=== PATIENT | male | born 1945 | race African-American/Black ===

== ENCOUNTER 2018-05-31 20:23 | Inpatient (IN) ==
--- NOTE | 2018-05-31 21:03 | Diag Imaging Result Doc PS360 ---
CT HEAD W/O CONTRAST - 05/31/2018 INDICATION: stroke protocol COMPARISON: 06/05/2017 FINDINGS: Stable advanced periventricular white matter chronic microvascular disease. There are numerous stable old lacunae, most prominently in the debbie, basal ganglia and caudate heads. No intracranial mass or hemorrhage. The skull is intact. The sinuses, mastoids, and middle ears are clear. IMPRESSION: Rather advanced chronic ischemic changes. No acute process. This exam was performed using automated exposure control, adjustment of mA or kV according to patient size, and/or use of iterative reconstruction technique Electronically signed by Mike Reeder 05/31/2018 9:01 PM
[2018-05-31 21:11] LABS: INR 1.08; PROTIME 14.9 Seconds (11.0-16.0)
[2018-05-31 21:12] LABS: PTT 32.5 Seconds (22.3-41.8)
[2018-05-31 21:14] LABS: BASO# 0.09 X1000 (0.0-0.2); HEMOGLOBIN 9.1 g/dL (14.0-18.0); MCH 29.7 PG (27-31); MPV 10.8 FL (7.4-10.4); PLT 197 X1000 (130-400); RBC 3.06 XMIL (4.7-6.1); RDW 20.4 % (11.5-14.5); WBC 8.66 X1000 (4.8-10.8)
--- NOTE | 2018-05-31 21:19 | Diag Imaging Result Doc PS360 ---
CHEST-PORTABLE - 05/31/2018 INDICATION: stroke protocol COMPARISON: 04/12/2018 FINDINGS: Stable mild cardiomegaly. There is some faint linear scarring or fibrosis in the costophrenic angles bilaterally. No new or focal infiltrates. No pneumothorax or pleural effusion. IMPRESSION: Cardiomegaly. No change from prior. Electronically signed by Mike Reeder 05/31/2018 9:16 PM
[2018-05-31 21:21] LABS: ALB/GLOB RATIO 1.2; ALBUMIN 3.9 g/dL (3.5-5.0); CALCIUM 8.5 mg/dL (8.8-10.2); CREATININE 1.8 mg/dL (0.7-1.2); POTASSIUM 4.4 mmol/L (3.5-5.1); TOTAL BILIRUBIN 1.86 mg/dL (0.20-1.00); TOTAL PROTEIN 7.1 g/dL (6.3-8.3)
[2018-05-31 21:40] LABS: EOS 2 % (1-10); LYMPHS 46 % (21-51); MONO 3 % (1-9); NRBC 31 % (0-0); SEGS 49 % (42-75)
[2018-05-31 21:41] LABS: ANISOCYTOSIS 3+; HOWELL-JOLLY BODIES OCCASIONAL; LARGE PLATELETS OCCASIONAL; POIKILOCYTOSIS 2+; TARGET CELLS 2+
[2018-05-31 21:44] LABS: SICKLE CELLS OCCASIONAL
--- NOTE | 2018-06-01 00:31 | PROVIDER DOCUMENTATION ---
This chart was entered by Taya Vivar Scribe, acting as scribe for Rajendra Freeman MD. HPI-Neurological Disorder - General Chief Complaint: Stroke-Like Symptoms Stated Complaint: possible cva Time Seen by Provider: 05/31/18 20:28 Source: family, EMS Allergies/Adverse Reactions: Patient Allergies Allergy/AdvReac Type Severity Reaction Status Date / Time ramipril [From Altace] Allergy Unknown COUGH Verified 04/12/18 16:13 Home Medications: Home Medication List Medication Instructions Recorded Confirmed Last Taken Type Clopidogrel Bisulfate [Plavix] 75 mg PO DAILY 12/06/17 05/31/18 03/18/18 07:30 History Cyanocobalamin (Vitamin B-12) 1,000 mcg PO DAILY 12/06/17 05/31/18 03/18/18 07: 30 History [B-12] Folic Acid 1 mg pe PO DAILY 12/06/17 05/31/18 03/18/18 07:30 History Glimepiride 1 mg PO BID 12/06/17 05/31/18 03/18/18 07:30 History Hydrocodone/Acetaminophen [Trinity 10 mg PO Q6-8H PRN PRN 12/06/17 05/31/18 07:30 History 7.5-325 Tablet] Losartan [Cozaar] 50 mg PO DAILY 12/06/17 05/31/18 03/18/18 07:30 History Multivitamin [Daily Multiple 1 each PO DAILY 12/06/17 05/31/18 03/18/18 07:30 History Vitamin] Omeprazole [Prilosec] 40 mg PO QAM 12/06/17 05/31/18 03/18/18 07:30 History ATORVAstatin [Lipitor] 40 mg PO DAILY 05/31/18 05/31/18 Unknown History Aspirin 81 mg PO DAILY 05/31/18 05/31/18 Unknown History Docusate Sodium 100 mg PO DAILY 05/31/18 05/31/18 Unknown History - History of Present Illness-Neuro Nature of Presenting Problem: 72 yom presents to ED by EMS c/o left side facial dropping, weakness upon getting out of shower that lasted 1 hr and was resolved by the time got to ED. Pt has slurred speech normally but family said it was increased tonight. Pt is a heavy smoker. Pt has hx of HTN, CVA, DM, GERD, Sickle Cell Disease. Hx of 2 CVA in the last 15 month end with mild slurred speech and left side weakness. Review of Systems - Adult - REVIEW OF SYSTEMS - ADULT Constitutional: reports: see HPI, arabella. denies: chills, fever Eyes: reports: no symptoms reported Ears, Nose, Mouth & Throat: reports: no symptoms reported Cardiovascular: reports: no symptoms reported Respiratory: reports: no symptoms reported Gastrointestinal: reports: no symptoms reported Genitourinary: reports: no symptoms reported Musculoskeletal: reports: muscle weakness (left side) Integumentary: reports: no symptoms reported Neurological: reports: see HPI, other (left side) Psychiatric: reports: no symptoms reported Endocrine: reports: no symptoms reported Hematologic/Lymphatic: reports: no symptoms reported Allergic/Immunologic: reports: no symptoms reported All Other Systems: Reviewed and Negative Past History - Adult - PAST MEDICAL HISTORY-ADULT Review of Records: reports: Old Records Reviewed, Nursing Assessment Review, Medications Reviewed Major Childhood Illnesses: reports: denies history Cardiovascular: reports: HTN Respiratory: reports: denies history Gastrointestinal: reports: GERD, GI bleed Obstetrical/Gynecological: reports: denies history Genitourinary: reports: denies history Musculoskeletal: reports: denies history Neurological: reports: CVA Endocrine/Immune: reports: Diabetes, Sickle Cell disease Other Conditions: reports: denies history - PRIOR SURGERIES/PROCEDURES Surgical/Procedure History: reports: cholecystectomy - PRIOR HOSPITALIZATIONS Prior Hospitalizations: reports: for other non-related - IMMUNIZATION STATUS Childhood Immunizations: See Nurse Assessment Flu Vaccine: See Nurse Assessment - FAMILY HISTORY Family History: reviewed, not pertinent - SOCIAL HISTORY Smoking: cigarettes, greater than 1 pack/day Physical Exam- Neurological - Physical Exam-Neuro Initial Vital Signs Reviewed: Yes General Appearance: appears well, alert, no apparent distress Eye Exam: bilateral eye: normal inspection, PERRL HENMT: normocephalic/atraumatic, moist mucous membranes, normal ENT inspection Head Injury: no evidence of injury. negative: active bleeding, Pena's Sign Neck: non-tender, full range of motion Respiratory: chest non-tender, lungs clear, normal breath sounds. negative: crackles, rales, rhonchi Cardiovascular: normal peripheral pulses, regular rate, rhythm. negative: bradycardia, tachycardia Abdominal Exam: normal bowel sounds, non tender, soft. negative: distended, guarding, rigid, rebound, tenderness Lymphatic: no adenopathy. negative: axilla node tender Extremity: normal range of motion, non-tender wreath and garland maker Exam: normal hearing, normal speech, PERRL Coordination/Gait: other (finger to nose test ataxia on the left side Nl on the right side). negative: normal finger to nose Motor/Sensory: no motor deficit, no sensory deficit, no pronator drift Neurologic: wreath and garland maker II-XII nml as tested, grossly normal Integumentary: normal color, normal turgor, warm/dry Psych/Mental Status: normal mood/affect, normal thought content, normal thought process, oriented x 3 Progress - PLAN OF CARE/RESULTS Progress/Plan/Lab Results: Vital Signs - 8 hr 05/31/18 21:08 05/31/18 21:09 05/31/18 22:01 Temperature 97.2 F L Pulse Rate 55 L 64 Respiratory Rate 16 16 Blood Pressure 191/84 O2 Sat by Pulse Oximetry 96 97 05/31/18 22:31 05/31/18 23:01 Temperature Pulse Rate 62 86 Respiratory Rate 21 12 Blood Pressure 165/86 183/94 O2 Sat by Pulse Oximetry 96 95 Laboratory Results - last 24 hr 05/31/18 05/31/18 05/31/18 20:51 20:51 20:51 WBC 8.66 RBC 3.06 L Hgb 9.1 L Hct 26.0 L MCV 85.0 MCH 29.7 MCHC 35.0 RDW Std Deviation 20.4 H Plt Count 197 MPV 10.8 H Neut % (Auto) Not Reportable Lymph % (Auto) Not Reportable Brown % (Auto) Not Reportable Eos % (Auto) Not Reportable Baso % (Auto) 1.0 H Neut # (Auto) Not Reportable Lymph # (Auto) Not Reportable Brown # (Auto) Not Reportable Eos # (Auto) Not Reportable Baso # (Auto) 0.09 Corrected WBC (Man) 6.60 Segmented Neutrophils 49 Lymphocytes 46 Monocytes 3 Eosinophils 2 Nucleated RBCs 31 H Large Platelets OCCASIONAL Poikilocytosis 2+ Anisocytosis 3+ Sickle Cells OCCASIONAL Target Cells 2+ [place] Bodies OCCASIONAL PT 14.9 INR 1.08 PTT (Actin FS) 32.5 Sodium 144 Potassium 4.4 Chloride 108 H Carbon Dioxide 25 Anion Gap 11 BUN 18 Creatinine 1.8 H Estimated GFR/1.73 m2 45 BUN/Creatinine Ratio 10 Glucose 146 H POC Glucose Calculated Osmolality 291 Calcium 8.5 L Total Bilirubin 1.86 H AST 61 H ALT 28 Alkaline Phosphatase 128 H Troponin T Total Protein 7.1 Albumin 3.9 Globulin 3.2 Albumin/Globulin Ratio 1.2 05/31/18 05/31/18 20:51 20:59 WBC RBC Hgb Hct MCV MCH MCHC RDW Std Deviation Plt Count MPV Neut % (Auto) Lymph % (Auto) Brown % (Auto) Eos % (Auto) Baso % (Auto) Neut # (Auto) Lymph # (Auto) Brown # (Auto) Eos # (Auto) Baso # (Auto) Corrected WBC (Man) Segmented Neutrophils Lymphocytes Monocytes Eosinophils Nucleated RBCs Large Platelets Poikilocytosis Anisocytosis Sickle Cells Target Cells [place] Bodies PT INR PTT (Actin FS) Sodium Potassium Chloride Carbon Dioxide Anion Gap BUN Creatinine Estimated GFR/1.73 m2 BUN/Creatinine Ratio Glucose POC Glucose 127 H Calculated Osmolality Calcium Total Bilirubin AST ALT Alkaline Phosphatase Troponin T 0.067 Total Protein Albumin Globulin Albumin/Globulin Ratio Orders Category Date Time Status Admit - [facility] Routine AdmDCTranf 05/31/18 23:50 Active Cardiac Monitoring DIRECTED Care 05/31/18 20:28 Completed Finger Stick Blood Sugar (ED) DIRECTED Care 05/31/18 20:28 Completed Misc. NRSG Communication Order DIRECTED Care 05/31/18 20:28 Inactive Neurological Check Q4H Care 05/31/18 23:50 Active Oxygen Therapy- ED Nursing DIRECTED Care 05/31/18 20:28 Completed Saline Loc NOW Care 05/31/18 20:28 Completed Vital Signs Order Q 4-HR ASSESS Care 05/31/18 23:50 Active Z-Document. for Tele Applied ORDERED Care 05/31/18 23:50 Active Diabetic Diet Diet 05/31/18 23:50 Active CHEST-PORTABLE [RAD] Stat Exams 05/31/18 20:[address] HEAD W/O CONTRAST [CT] Stat Exams 05/31/18 20:25 Completed CBC WITH ELECTRONIC DIFF [HEME] Stat Lab 05/31/18 20:51 Completed COMPREHENSIVE METABOLIC PANEL [CHEM] Stat Lab 05/31/18 20:51 Completed PROTIME WITH INR [COAG] Stat Lab 05/31/18 20:51 Completed PTT [COAG] Stat Lab 05/31/18 20:51 Completed TROPONIN T Stat Lab 05/31/18 20:51 Completed URINALYSIS W/POSS RFLX CULT [URINALYSIS] Stat Lab 05/31/18 20:28 Uncollected Ondansetron [Zofran] Med 05/31/18 23:50 Active 4 mg IV Q4H PRN PRN Oxygen Device Routine Oth 05/31/18 23:50 Active Telemetry [OM.EQ] Routine Oth 05/31/18 23:50 Active EKG [EKG] Stat Ther 05/31/18 20:25 Ordered EKG [EKG] Stat Ther 05/31/18 20:28 Ordered Transfer/Admit Order [TRANSFER] Routine Transfer 05/31/18 23:39 Completed Patient care, assessment and plan discussed with attending physician Dr. Martin and he agree with the plan as documented. Result Diagrams: 05/31/18 20:51 05/31/18 20:51 - REASSESSMENT Reassessment #1 Time Reassessed: 21:18 Status: other (Called transfer center, they said they are on diversion and they refuse phone consult also.) Reassessment #2 Time Reassessed: 22:05 Status: other (Spoke to Dr. Berg from [facility]. Advised to admit him to our facility for TIA workup. no TPA needed.) - EKG 1 Time of EKG reading by physician:: 01:07 EKG Read and Signed by:: Rajendra Sheppard EKG Interpretation (*Must complete 3 of following elements*): Normal Rate: 87 Rhythm: sinus [place]: normal IA Interval: normal - CONSULTS/PCP/HOSPITALIST Notification Time Discussed: 21:55 Consult Disposition: Admit (Accepted. workup for TIA.) Departure - Departure Date of Disposition Decision: 05/31/18 Time of Disposition Decision: 21:55 DIAGNOSIS: TIA (transient ischemic attack) Disposition: ADMITTED INPATIENT 09 Certified Medical Emergency: Emergent Condition: Stable - Critical Care Note This patient required my direct & personal management of CC.: No Attestation - Physician/ OPAL Attestation Patient care was provided by Advanced Practice Provider:: No Advanced Practice Provider:: Rajendra Sheppard The physician spent face to face time with patient:: Yes Advanced Practice Provider documentation review:: Supervising physician onsite and consulted in the evaluation and care of this patient. The physician did have a face to face encounter with the patient. - NIH Stroke Scale NIH Type: Initial Evaluation Level of Consciousness: 0-Alert LOC Questions (ask month and age): 0-Answers Both Correctly LOC Commands (ask to open & close eyes;make a fist, let go): 0-Obeys Both Correctly Best Gaze (horizontal eye movement): 0-Normal Visual (use finger movement, counting or visual threat): 0-No Visual Loss Facial Palsy (show teeth or raise eyebrows & close eyes tght: 0-Symmetrical Movement Motor Function-left arm: 0-Normal Motor Function-right arm: 0-Normal Motor Function-left le-Normal Motor Function-right le-Normal Limb Ataxia(qksrbs-sxbt-vqhwen, or heel to huffman): 2-Present in two limbs (B/L LE LUE) Sensory(pin prick to face,arms,trunk,legs-compare side/side): 0-No Ataxia Best Language(name item/read sentence.Ex-Down to Earth): 0-No Aphasia Dysarthria(Pt read words or say words Ex.Mama,Tip-Top,Thanks: 0-Normal Articulation Extinction and Inattention: 0-Normal Modified Sonam Score Criteria: 0-no symptoms This chart was documented by the indicated scribe, (Taya Vivar Scribe) and accurately reflects the services I performed and decisions made by me, Rajendra Freeman MD, as attested by the provider's signature.
[2018-06-01] MEDS ORDERED: ASPIRIN PO ONE (00:33)
[2018-06-01] MEDS ORDERED: TYLENOL PO PRN (00:42)
[2018-06-01 01:29] LABS: URINE SOURCE CLEAN CATCH
[2018-06-01 01:32] LABS: BILIRUBIN URINE NEGATIVE (NEGATIVE); BLOOD URINE MODERATE (NEGATIVE); COLOR YELLOW; GLUCOSE URINE NEGATIVE (NEGATIVE); KETONE URINE NEGATIVE (NEGATIVE); LEUKOCYTES URINE NEGATIVE (NEGATIVE); NITRITE URINE NEGATIVE (NEGATIVE); PH URINE 6.5; PROTEIN URINE 200 mg/dL (NEGATIVE); SP GRAVITY URINE 1.005; TURBIDITY URINE CLEAR (CLEAR); UR EPITHELIAL CELLS <10 /HPF (<10); URINE BACTERIA NEGATIVE /HPF; URINE WBC <10 /HPF (<10); UROBILINOGEN URINE NORMAL (NORMAL)
[2018-06-01] MEDS ORDERED: NS 1,000 ML IV SCH (04:30)
[2018-06-01] MEDS: LOVENOX SUBQ SCH (05:16)
[2018-06-01 05:25] LABS: BASO# 0.05 X1000 (0.0-0.2); BASO% 0.4 % (0.0-0.8); HEMATOCRIT 25.6 % (42.0-52.0); HEMOGLOBIN 8.8 g/dL (14.0-18.0); MCH 29.4 PG (27-31); MCHC 34.4 g/dL (33-37); MCV 85.6 FL (81-99); MPV 10.6 FL (7.4-10.4); PLT 192 X1000 (130-400); RBC 2.99 XMIL (4.7-6.1); RDW 20.2 % (11.5-14.5); WBC 11.64 X1000 (4.8-10.8)
[2018-06-01 05:49] LABS: ALB/GLOB RATIO 1.3; ALBUMIN 3.7 g/dL (3.5-5.0); CALCIUM 8.2 mg/dL (8.8-10.2); CREATININE 1.4 mg/dL (0.7-1.2); POTASSIUM 4.3 mmol/L (3.5-5.1); TOTAL BILIRUBIN 1.34 mg/dL (0.20-1.00); TOTAL PROTEIN 6.6 g/dL (6.3-8.3)
[2018-06-01 05:55] LABS: BANDS 6 % (0-1); EOS 2 % (1-10); LYMPHS 30 % (21-51); MONO 4 % (1-9); NRBC 12 % (0-0); SEGS 58 % (42-75)
[2018-06-01] MEDS: PROTONIX PO SCH (06:29)
[2018-06-01] MEDS: HUMALOG SUBQ SCH ×4 (06:29→20:35)
--- NOTE | 2018-06-01 07:04 | HISTORY AND PHYSICAL ---
PRIMARY CARE PROVIDER: Chas Salgado DO NEUROLOGIST: Dr. Diaz in [place]. LIFEGUARD: Bay Arango MD DATE AND TIME: at 2245. CHIEF COMPLAINT: Stroke-like symptoms. HISTORY OF PRESENT ILLNESS: Mr. Thomas is a 72-year-old male with a history of sickle cell disease, 3 previous strokes, hypertension, and diabetes mellitus. The patient states that he did have a TIA in 2011 and October of 2017, though just a month prior to his last TIA in September 2017, he did have a CVA. It did leave him with left sided deficits. He does have some weakness on this side and does still have some difficulty with speech sometimes. The patient at this time is on medication for hypertension, dyslipidemia. He also takes 81 mg aspirin daily as well as 75 mg of Plavix daily. The patient states that this evening at about 7: 30 p.m., he was taking a shower. He states that he got out of the shower and was standing in front of the toilet when he did begin to have diaphoresis. The patient states that he did feel weak all over. His did come into the bathroom to check on him and stated that at this time, the patient did appear to have facial droop and drawing of his face to one side. She also reported that he had some slurred speech and that he was very weak and was unsteady on his feet. Though the patient at this time was not confused, she did state that she did have to repeat things more than once, such as getting him to sit down in a chair in the bathroom. He was brought to the ER by ambulance. He did arrive at 20:23. At the time of arrival, the patient reports that his symptoms had resolved. The only symptom that he reported after this actually started after he arrived to the ER. He said for a very brief period while in the emergency department, he did have some blurred vision, though this is resolved at this time. The patient is alert and oriented to person, place, time, and situation. His at the bedside states that he does have difficulty with speech at times. She states that this is almost completely resolved, though she can still tell when he is talking to us that his speech is still somewhat off from his normal. He denied any headache, dizziness, or feeling lightheaded. He denied any chest pain, shortness of breath, or palpitations. He denied any cough, fever, body aches or chills. He denied any abdominal pain, nausea, or vomiting. The patient states he did have 1 episode of diarrhea earlier today though this was a one-time episode and has not occurred since. She stated that normally he does take stool softener for occasional constipation due to he does take Boyd for pain. He denies any dysuria or urinary frequency. He denies any swelling in extremities. The patient does have previously mentioned left-sided weakness from his previous stroke and also states that since his previous stroke , he does have some numbness in his right distal foot though this is not of new onset and has not worsened. Upon evaluation in the ER, the patient's initial vital signs were temperature 97.2, heart rate 64, respirations 16, blood pressure 191/84, oxygen saturation 97% on room air. CT of the head without contrast showed rather advanced chronic ischemic changes though there was no acute process noted. Chest x-ray showed cardiomegaly though no change from prior studies. EKG performed in the ER did show normal sinus rhythm at a rate of 87 with a QTC of 471. At this time, the patient will be admitted for further treatment and evaluation of his TIA versus CVA. REVIEW OF SYSTEMS: A 14-point review of systems was conducted with the patient and all were negative except for pertinent positives mentioned above in HPI. PAST MEDICAL HISTORY: 1. Sickle cell disease. 2. Sickle cell anemia. 3. Hypertension. 4. Chronic kidney disease with baseline creatinine according to our laboratory history for the patient of 1.3 to 1.8. 5. Diabetes mellitus type 2. 6. History of CVA x3. He reports he had a TIA in 2011. He had a CVA in September 2017 which left him with residual deficits of left-sided weakness and some speech disturbances. He had another TIA in October 2017. 7. Gastroesophageal reflux disease. PAST SURGICAL HISTORY: 1. Cholecystectomy. 2. Bilateral cataract surgery. SOCIAL HISTORY: The patient is a current one-third pack per day smoker. There is no known alcohol or illicit drug use. He is . His was present at the bedside during our examination. The patient does require ambulatory assistance of a walker FAMILY HISTORY: Positive for his mother having a history of hypertension. His father had a history of heart disease, congestive heart failure, and hypertension. ALLERGIES: The patient has allergy to Ramipril. HOME MEDICATIONS: 1. Aspirin 81 mg p.o. daily. 2. Atorvastatin 40 mg p.o. nightly. 3. Coreg 6.25 mg p.o. b.i.d. 4. Plavix 75 mg p.o. nightly. 5. Vitamin B12 1000 mcg p.o. daily. 6. Docusate sodium 100 mg p.o. nightly. 7. Folic acid 1 mg p.o. nightly. 8. Glimepiride 1 mg p.o. b.i.d. 9. Boyd 7.5, 10 mg p.o. 6-8 hours p.r.n. as needed for pain. 10.Losartan 50 mg p.o. daily. 11.Multivitamin 1 p.o. daily. 12.Omeprazole 40 mg p.o. in the morning. DIAGNOSTIC DATA/LABORATORY RESULTS: White blood cell count 8.66, hemoglobin 9.1 , hematocrit 26, platelet count 197. PT 14.9, INR 1.08, PTT 32.5. Sodium 144, potassium 4.4, chloride 108, serum bicarb 25, BUN 18, creatinine 1.8 with a GFR of 45, glucose 146, calcium 8.5, total bilirubin 1.86, AST 61, ALT 28, alkaline phosphatase 128. Troponin 0.067. Urinalysis was obtained via clean catch, was positive for protein and blood though was negative for glucose , ketones, nitrites, leukocytes, white blood cells or bacteria. Chest x-ray showed cardiomegaly though no change from prior. CT of the head without contrast showed rather advanced chronic ischemic changes. There was no acute process. There were stable events. Ventricular white matter, chronic microvascular disease. There were also numerous old lacunae, most prominently in the debbie, basal ganglia, and caudate head. PHYSICAL EXAMINATION: VITAL SIGNS: Temperature 97.8, heart rate 90, respirations 16, blood pressure 167/90, oxygen saturation 95% on room air. GENERAL: Mr. Thomas is a very pleasant 72-year-old elderly male. He was resting on the ER stretcher. He was in no acute distress. He was awake, alert and able to answer all questions appropriately. HEENT: Head is atraumatic, normocephalic. Pupils are 3 mm bilaterally, are equal, round and reactive to light. EOMs were intact. Subconjunctivae were pale. Oral mucosa is moist. Oropharynx clear. NECK: Supple. Trachea midline. No carotid bruits noted on auscultation bilaterally. CARDIOVASCULAR: The patient has normal S1 and S2. No murmurs, gallops or rubs appreciated. Regular rate and rhythm. PULMONARY: The patient has symmetrical chest expansion bilaterally. Lungs sounds were clear to auscultation in bilateral full cifuentes. ABDOMEN: Soft, nontender, nondistended. Bowel sounds were present in all four quadrants. EXTREMITIES: No cyanosis or edema noted. Pulse, motor and sensory were intact in all extremities. Radial pulses and pedal pulses were 2+ bilaterally. INTEGUMENTARY: The patient's skin color is normal for his race. It was dry and intact. NEUROLOGIC: The patient is alert and oriented to person, place, time, and situation. He does not have any facial droop noted. There was no arm drift noted either. Despite the patient having a history of some weakness on his left, his muscle strength and hand grasp were equal bilaterally. He did have some ataxia noted on his left lower extremity upon examination and did report some numbness in his right distal foot, though this was not of new onset and had not worsened since his previous stroke. His speech was clear and understandable. ASSESSMENT AND PLAN: 1. Transient ischemic attack versus cerebrovascular accident. For further evaluation of this, we have ordered for the patient to receive an MRA of the neck and MRI of the brain without contrast. The patient does have some chronic kidney disease and given this, we will hydrate the patient prior to the study. He did have a previous carotid Doppler performed in October 2017 which did show some stenosis noted on the left of 60%-79%. The right side is normal to mild at 0%-39%. The patient has reported that his neurologist has been monitoring this. We will continue with lipid profile in the morning as well as an echocardiogram. The patient will be n.p.o. after midnight just until his lipid profile is drawn, then he will continue a heart healthy and diabetic diet. Will do neuro checks and vital signs q.4 hours. The patient did receive a full dose 325 mg aspirin tonight. We will continue his already prescribed aspirin and Plavix as well as his atorvastatin. We have placed a consult with neurology with Dr. Duncan as well as the patient's front desk receptionist, Dr. Arango. Will await their evaluation and further recommendations as well. 2. Sickle cell disease. We have placed a consult with Dr. Arango. We will await his evaluation and further recommendations for management. 3. Hypertension. At this time, we have placed orders for the patient's antihypertensive medications of Coreg and Losartan to be given though they will be held if the patient's blood pressure is less than 160 systolic. We will allow for some permissive hypertension given his possible cerebrovascular accident. 4. Hyperlipidemia. Will continue with atorvastatin. 5. Chronic kidney disease. The patient's baseline does appear to be 1.3 to 1.6 creatinine. He is at 1.8 at this time. This is just slightly above his baseline. We will continue to monitor this closely. We will avoid nephrotoxic medications and renally dose medicines as necessary. 6. Diabetes mellitus type 2. We have placed the patient on sliding scale Lispro insulin. Will do pattern fingerstick blood sugars and continue to follow. 7. Gastroesophageal reflux disease. The patient does take omeprazole normally though given that omeprazole may effect his Plavix efficacy, we will change this to Protonix at this time. 8. Deep venous thrombosis prophylaxis will be provided with Lovenox 40 mg subcu q.24 hours. The patient has been placed on the medical floor with telemetry. He will have vital signs and neuro checks q.4 hours. Will do strict intake and output. Will repeat a CBC, CMP, and lipid profile in the morning as well as a series of cardiac enzymes. Further orders and recommendations pending hospital course, diagnostic studies and physician evaluation. Dictated by TREVOR Rashid for Brandan Díaz MD cc: MD Chas Sam, DO EDUARDOD
[2018-06-01] MEDS ORDERED: GLIMEPIRIDE 1 MG PO SCH (09:00)
[2018-06-01] MEDS: APRESOLINE IV PRN ×2 (10:22→23:36)
[2018-06-01] MEDS: VITAMIN B-12 PO SCH (10:23)
[2018-06-01] MEDS: THERA M PLUS PO SCH (10:23)
[2018-06-01] MEDS: 1/2 NS 1,000 ML IV SCH (10:23)
[2018-06-01] MEDS: COZAAR PO SCH (10:24)
[2018-06-01] MEDS: COREG PO SCH ×2 (10:24→20:35)
[2018-06-01] MEDS: NORCO-10 PO PRN ×2 (11:34→23:40)
--- NOTE | 2018-06-01 12:55 | ECHO REPORT ---
ORDER DATE: 06/01/2018 ECHOCARDIOGRAPHIC MEASUREMENTS: 1. Interventricular septum 1.5 2. Left ventricular posterior wall 1.4. 3. Diastolic diameter 5.0. 4. Left ventricular systolic diameter 3.3. 5. Left atrium 4.9 6. Aorta 2.9. SUMMARY: 1. Aortic valve leaflets are trileaflet. 2. Mitral valve was normal. 3. Tricuspid valve was normal. 4. Pulmonic valve was normal. There was mild pulmonary regurgitation. 5. There is mild tricuspid regurgitation. Peak velocity across the tricuspid valve was 2.7 m/sec. 6. Pulmonary artery systolic pressure 40 mmHg. 7. There is left atrial enlargement. Peak velocity across the aortic valve less than 2 m/sec. By Doppler studies, there is no aortic stenosis. There is mild eccentric aortic regurgitation. 8. Normal left ventricular cavity size. Estimated ejection fraction of 60%. There is diastolic dysfunction. 9. There is no pericardial effusion or obvious intracardiac mass or thrombus seen. cc: Sherif Garcia MD
--- NOTE | 2018-06-01 13:05 | PROGRESS NOTE ---
DATE: 06/01/2018 SUBJECTIVE: This patient is sitting on the bed and eating at this moment. He is not complaining of any new motor deficits. His is at the bedside. He is not having dysphagia or pain. He is complaining of mild cough which is not new. As per the patient he has some facial weakness and slurred speech. Yesterday in the afternoon, his blood pressure was elevated but we allowed the blood pressure to be elevated due to the possibility of a stroke. I will restart his medications this afternoon after completing 24 hours. Apparently this patient has been having multiple strokes, one in 2011, one in June of 2017, and another one in October of 2017. This patient has been placed on aspirin and Plavix, he is also on Lipitor blood pressure medication. He does have diabetes. His triglyceride and cholesterol are good, as well as the LDL which is 28. His blood sodium is a little bit elevated, he has been placed on normal saline, I will switch it to half normal saline. We will get an MRI without contrast in the morning due to his kidney dysfunction, carotid ultrasound, echocardiogram, and we have requested an evaluation by the Neurology Department. He does have a history of sickle cell disease, he is not getting any crisis at this moment. OBJECTIVE: Vital Signs: Temperature 97.8 degrees, pulse 60, respiratory rate 16, blood pressure 185/81, oxygen saturation 98% on room air. HEENT: Head: Normocephalic, no trauma. PERRLA. Neck: Supple. No JVD. No masses. Central trachea. Chest: Clear to auscultation. No wheezing. No rales. Cardiovascular: Regular rate and rhythm. Abdomen: Soft, nontender, nondistended. No hepatosplenomegaly. Neurological: The patient is alert. He is oriented x4. He has some left facial weakness as well as left upper and lower extremity weakness, around 4/5 with some muscle rigidity. LABORATORY DATA: WBC 11.6, hemoglobin 8.8, hematocrit 25.6 platelets 192,000. Sodium 146, potassium 4.3, chloride 107, bicarbonate 27, BUN 17, creatinine 1.4, glucose 147, calcium 8.2, AST 56, ALT 27, alkaline phosphatase 114, albumin 3.7. ASSESSMENT AND PLAN: 1. Transient ischemic attack versus cerebrovascular accident. As per the patient he does not have any new focal deficits. Probably this is a transient ischemic attack. He has been having multiple strokes, one in 2011, one in June of 2017, and one in October of 2017. He does have some left facial and extremity weakness. I will do a carotid Doppler ultrasound, the last one in October showed a stenosis of 60%-79% on the left side, and on the right side it was mild 0%-30%. We will ask the Neurology Department to evaluate this patient. 2. Sickle cell disease. I will continue with gentle intravenous fluids. It looks like Hematology Oncology has been consulted. 3. Hypertension. We will allow for some permissive hypertension, I will treat him if the blood pressure is more than 180, and I will restart his home medications in the afternoon after completing 24 hours from the beginning of the symptoms. 4. Hyperlipidemia. We will continue with atorvastatin. 5. Chronic kidney disease. This is his baseline. Today the creatinine is 1.4. 6. Type 2 diabetes. Continue sliding scale insulin and pattern of blood sugar. 7. Gastroesophageal reflux disease. Continue with omeprazole. 8. Deep vein thrombosis with Lovenox. 9. This patient will have an magnetic resonance image tomorrow without contrast, carotid ultrasound, and echocardiogram. He will be evaluated by the Neurology Department. We will allow for permissive hypertension. We will monitor. cc: Jaret Mazariegos MD
[2018-06-01] MEDS: FOLIC ACID PO SCH (20:34)
[2018-06-01] MEDS: COLACE PO SCH (20:35)
[2018-06-01] MEDS: PLAVIX PO SCH (20:35)
[2018-06-01] MEDS: LIPITOR PO SCH (20:35)
[2018-06-02] MEDS: ZOFRAN IV PRN ×2 (00:46→08:47)
--- NOTE | 2018-06-02 03:51 | HISTORY AND PHYSICAL ---
ADDENDUM: Patient of Dr. Chas Salgado. HISTORY OF PRESENT ILLNESS: Mr. Thomas Thomas is a 72-year-old man with past medical history of hypertension, prior CVAs, type 2 diabetes mellitus, hyperlipidemia. Last CVA was reported on November 07, 2017. He still residual weakness from that CVA. When he was discharged the last time he was here, for that said CVA, he was on some antihypertensives and Plavix at that time. He came in today because of slurred speech and drooling from the right side of his mouth as reported by his . No reported focal weakness, tingling at that time. His symptoms lasted for a few hours and he is back to his baseline. PHYSICAL EXAM: My exam was notable for the slight weakness of the left lower extremity from his prior stroke. Vital Signs: Heart rate 55, respirations 14 per minute, blood pressure was not noted. Other than the left lower extremity weakness, his power is about 5/5 in all the other extremities. He does have ataxia of the left lower extremity when doing the [id number]; that was the only thing of note. No pronator drift. PLAN: My plan for this patient is to do an MRA, and MRI of the brain. His last carotid Doppler study showed a left 60-79% stenosis. MRA will give a more accurate degree of stenosis to see if this patient is a candidate for CEA. Electrocardiogram was done 8 months ago and should be ordered. An MRI of the brain will confirm our suspicion that this was either a TIA versus stroke. Whether we need to increase the dose of his Lipitor is up for debate from 40 mg to 80 mg. Another issue of contention is whether this patient will benefit from prophylactic transfusion or EBT, being that he has sickle cell. I will defer to Hematology. For the first 2 weeks, he can be on dual antiplatelet therapy with baby aspirin and 75 mg of Plavix, at which point in time the aspirin can be dropped. Alternatively, we may want to try Plavix with Aggrenox, since the patient is still having TIA episodes while on Plavix. Neurology needs to be consulted. cc: MD Chas Sam, DO
[2018-06-02] MEDS: HUMALOG SUBQ SCH ×4 (06:39→21:47)
[2018-06-02] MEDS: PROTONIX PO SCH (06:39)
[2018-06-02] MEDS: LOVENOX SUBQ SCH (06:40)
[2018-06-02] MEDS: 1/2 NS 1,000 ML IV SCH (06:40)
[2018-06-02 07:33] LABS: BASO# 0.05 X1000 (0.0-0.2); BASO% 0.4 % (0.0-0.8); HEMATOCRIT 29.4 % (42.0-52.0); MCV 85.2 FL (81-99); MPV 10.9 FL (7.4-10.4); PLT 160 X1000 (130-400); RBC 3.45 XMIL (4.7-6.1); RDW 20.4 % (11.5-14.5)
[2018-06-02 08:05] LABS: ALB/GLOB RATIO 1.2; ALBUMIN 4.2 g/dL (3.5-5.0); CALCIUM 9.3 mg/dL (8.8-10.2); CREATININE 1.5 mg/dL (0.7-1.2); POTASSIUM 4.2 mmol/L (3.5-5.1); TOTAL BILIRUBIN 2.51 mg/dL (0.20-1.00); TOTAL PROTEIN 7.7 g/dL (6.3-8.3)
[2018-06-02 08:14] LABS: BANDS 2 % (0-1); LYMPHS 4 % (21-51); MONO 4 % (1-9); NRBC 14 % (0-0); SEGS 88 % (42-75)
[2018-06-02 08:15] LABS: ANISOCYTOSIS 1+; HYPOCHROM 1+
[2018-06-02 08:16] LABS: POIKILOCYTOSIS 1+; TARGET CELLS 1+
[2018-06-02 08:17] LABS: HOWELL-JOLLY BODIES 1+; LARGE PLATELETS 1+; SICKLE CELLS OCCASIONAL
[2018-06-02] MEDS: NORCO-10 PO PRN (08:47)
[2018-06-02] MEDS: THERA M PLUS PO SCH (09:17)
[2018-06-02] MEDS: ASPIRIN PO SCH (09:17)
[2018-06-02] MEDS: COZAAR PO SCH (09:17)
[2018-06-02] MEDS: VITAMIN B-12 PO SCH (09:17)
[2018-06-02] MEDS: COREG PO SCH ×2 (09:18→21:42)
--- NOTE | 2018-06-02 10:48 | PROGRESS NOTE ---
DATE: 06/02/2018 SUBJECTIVE: This patient has been vomiting. He reported an episode of vomiting yesterday and today. It looks like he has been having coffee-grounds emesis. I will put this patient on Protonix twice a day, and I will consult Gastroenterology Department. I will not stop for now, the aspirin and Plavix, because this patient has been having multiple strokes. It is reported that this patient had a stroke in 2011, another in June 2017, and another in October 2017. He has left-sided weakness. I am waiting for an MRI of the head and carotid ultrasound. Echocardiogram did not show any visible abnormality. Ejection fraction 60%. Neurology Department has been consulted. Blood pressure is still elevated. I will continue with his home medications, and I will add hydralazine 3 times a day to see how he does. OBJECTIVE: Vital Signs: Temperature 97.3 degrees, pulse 107, respiratory rate 20, blood pressure 174/95, oxygen saturation 97% on room air. HEENT: Head normocephalic. No trauma. PERRLA. Neck: Supple. No JVD. No masses. Central trachea. Chest: Clear to auscultation. No wheezing. No rales. Cardiovascular: RRR, tachycardic. Abdomen: Soft, nontender, nondistended. No hepatosplenomegaly. Extremities: No edema. No clubbing. No cyanosis. Neurological: The patient is alert and oriented x4. He has some left facial weakness as well as left upper and lower extremity weakness, around 4/5 with some muscle rigidity. LABORATORY: WBC 13.3, hemoglobin 10, hematocrit 29.4, platelets 160,000. Sodium 146, potassium 4.2, chloride 105, bicarbonate 25, BUN 18, creatinine 1.5, glucose 146, calcium 9.3. AST 70, ALT 32, alkaline phosphatase 134, albumin 4.2. ASSESSMENT AND PLAN: 1. Likely transient ischemic attack versus cerebrovascular accident. As per the patient, he does not have any new focal deficits. He has been having multiple strokes, including one in 2011, June 2017, and October 2017. Echocardiogram did not show any acute abnormality. We will do a new carotid Doppler ultrasound. The last one in October showed stenosis of 60% to 79% on the left side. We already asked Neurology to evaluate this patient pending recommendations. 2. Sickle cell disease. Continue with gentle IV fluids. It looks like hematology/oncology has been consulted. I do not think he is having any crisis. 3. Likely upper gastrointestinal bleed. This patient has been on aspirin and Plavix, which I will continue for now. The patient had a coffee-grounds emesis, this morning reported. I will place this patient on pantoprazole. 4. Hypertension. The blood pressure is still elevated. I will continue with his home medications, and I will add hydralazine to try to control it. 5. Hyperlipidemia. Continue with atorvastatin. Lipid panel looks good. 6. Chronic kidney disease. This is his baseline. Continue with same treatment. 7. Type 2 diabetes. Continue sliding scale insulin and pattern of blood sugar. Pending hemoglobin A1c. 8. Mild elevation of the liver function tests, which I believe is chronic. 9. Gastroesophageal reflux disease. Continue with pantoprazole twice a day. 10. Deep vein thrombosis prophylaxis. This patient has been placed on Lovenox, which I will stop due to his gastrointestinal bleed. 11. Leukocytosis likely reactive, but I already asked for a chest x-ray, and I will get some cultures, urine and blood culture. 12. Hypernatremia. I instructed the patient to increase the water intake. He has been placed on a liquid diet. We will monitor. cc: Jaret Mazariegos MD
[2018-06-02] MEDS: PROTONIX IV SCH ×2 (10:55→21:42)
[2018-06-02] MEDS: APRESOLINE PO SCH ×3 (10:57→21:43)
--- NOTE | 2018-06-02 11:33 | EKG Report ---
Test Performed on : 06/01/2018 00:01:07 AM Test Reason : stroke protocol Blood Pressure : / mmHG Vent. Rate : 087 BPM Atrial Rate : 087 BPM P-R Int : 144 ms QRS Dur : 102 ms QT Int : 392 ms P-R-T Axes : 000 006 063 degrees QTc Int : 471 ms Normal sinus rhythm. Normal ECG When compared with ECG of 12-APR-2018 16:13, (Unconfirmed) Nonspecific T wave abnormality, improved in Lateral leads QT has lengthened Unconfirmed Result
--- NOTE | 2018-06-02 13:32 | CONSULTATION ---
DATE OF CONSULTATION: 06/02/2018 REASON FOR CONSULTATION: Possible hematemesis. HISTORY OF PRESENT ILLNESS: This is a 72-year-old, male with a history of sickle cell disease, history of CVAs x3, hypertension and diabetes. Patient has had TIAs versus CVAs in 2011, September 2017 and October 2017. He reports some left-sided weakness. The patient's is with him today. The patient states he had gotten out of the shower on Saturday and was very weak. He became diaphoretic. The noted some facial drooping and slurring of the speech. She brought him in to the emergency room for further evaluation. Patient has denied abdominal pain. He reports occasional constipation and takes stool softeners as needed. No reported blood in the stool or black stools. He did report 2 episodes of vomiting, 1 last evening, and 1 this morning after eating. He states it was dark in color, coffee-ground consistency. Patient does take aspirin and Plavix for his history of strokes. He had also been given Lovenox since admission. I have talked with Dr. Parish who states that he has stopped his Lovenox injection. From our records, we had last seen the patient in 2014. He had an EGD in June 2014 that showed duodenitis and a colonoscopy that showed 1 polyp in the hepatic flexure that was ablated. He had been in the hospital in October 2014 with GI bleeding with noted AVM in the small bowel that was cauterized. PAST MEDICAL HISTORY: Sickle cell disease. History of CVAs, hypertension, diabetes. Chronic kidney disease. GERD. PAST SURGICAL HISTORY: Cholecystectomy and bilateral cataract surgery. ALLERGIES: Altace causing a cough. HOME MEDICATIONS: 1. Aspirin 81 mg daily. 2. Lipitor 40 mg daily. 3. Coreg 6.25 mg twice a day. 4. Plavix 75 mg daily. 5. Vitamin B12 1000 mcg daily. 6. Colace 100 mg daily. 7. Folic acid 1 mg daily. 8. Glimepiride 1 mg twice a day. 9. [place] 7.5/325, 10 mg every 6 to 8 hours as needed. 10. Cozaar 50 mg daily. 11. Multivitamin daily. 12. Omeprazole 40 mg daily. SOCIAL HISTORY: He is . Smoker, reported 1/3 of a pack daily. No reported alcohol use. FAMILY HISTORY: Mother with hypertension. Father had history of heart disease , congestive heart failure and hypertension. REVIEW OF SYSTEMS: Per history of present illness. PHYSICAL EXAMINATION: Vital signs: Temperature 98.3 degrees, pulse 100, respirations 18, blood pressure 159/87. General: Generally, patient is awake and alert. He does have some alteration in his speech, when getting his history, but he is alert and oriented to person , place, and time. Respiratory: Lung sounds clear bilaterally. Cardiovascular: Regular rate and rhythm. Abdomen: Soft and nontender, nondistended. Positive bowel sounds. Extremities: No lower extremity edema noted. Left-sided weakness compared to the right. DIAGNOSTIC RESULTS: Laboratory/Hematology: WBC 13.30, hemoglobin 10.0, hematocrit 29.4, MCV 85.2, platelet 160,000. Coagulation: ProTime 14.9, INR 1.08, PTT 32.5. Chemistry: Sodium 146 potassium 4.2, chloride 105, CO2 25, BUN 18, creatinine 1.5, glucose 146, calcium 9.3, total bilirubin 2.51, AST 70, ALT 32, alkaline phosphatase 134. ASSESSMENT AND PLAN: 1. Possible transient ischemic attack versus cerebrovascular accident. Neurology has been consulted. 2. Hematemesis. The patient had been on aspirin, Plavix and Lovenox injections. His Lovenox has currently been held. He has had 2 reported episodes of hematemesis, coffee- grounds emesis, last night after eating and this morning after breakfast. Continue proton pump inhibitors. Monitor hemoglobin and hematocrit. Transfuse packed red blood cells as needed. Patient would be at high risk for stopping his aspirin and Plavix due to his frequent history of cerebrovascular accident versus transient ischemic attack. We will wait on neurology consult. Monitor for further signs of active bleeding, and if indicated, would proceed with EGD, otherwise monitor for now. 3. Sickle cell disease. Consult has been obtained for Dr. Arango, hematology/ oncology. 4. Other medical problems including hypertension, hyperlipidemia, chronic kidney disease. Diabetes. Gastroesophageal reflux disease. Continue current medical management. I have discussed this case with Dr. Fernandez and further plans will be made as needed. Again continue PPI and Lovenox has been held. Dictated by TREVOR Donald for Danilo Fernandez MD cc: TREVOR White MD [facility]
--- NOTE | 2018-06-02 16:30 | CONSULTATION ---
DATE OF CONSULTATION: 06/02/2018 REASON FOR CONSULTATION: Question of stroke. HISTORY OF PRESENT ILLNESS: This is a 72-year-old right-handed male with history of sickle cell disease and prior strokes, presenting with concerns of stroke or TIA. He also has a history of hypertension, type 2 diabetes, hyperlipidemia and ongoing tobacco use. History is from the patient and his attentive . The patient reports he was feeling well. He took a shower and reports the water was quite warm. He got out of the shower, dried off, and suddenly felt a sense of generalized weakness. His checked on him, and as she was walking toward him, called his name a couple of times before he answered. He was just standing holding on to the side rail looking down initially, but he did ultimately look at her and respond some. She says he was mumbling incoherently when trying to talk. The patient says he was trying to talk and knew what he wanted to say, but apparently it was not coming out correctly. He was diaphoretic. There was a question of facial asymmetry. There was no obvious focal weakness. She was able to get him to sit on a chair. EMS arrived. He denied chest pain, shortness of breath, palpitations. His said she had to hold him by the waist as he seemed to be losing the ability to stand. There was no loss of consciousness. There was no headache, visual changes or focal weakness of the extremities. He does have reported residual left-sided weakness from prior stroke event from last year that was not worsened. Symptoms resolved after around 45 minutes or so. A head CT on arrival did not show acute findings but does show advanced chronic ischemic changes. Blood pressure was 191/84 on admission. PAST MEDICAL HISTORY: Sickle cell anemia, type 2 diabetes, hypertension, previous TIAs or strokes, most recently 04/2017 and possibly 10/2017, memory issues since stroke , cataracts in both eyes, cholecystectomy, hearing aids, chronic kidney disease, questionable seizure. SOCIAL HISTORY: He is a current smoker. No alcohol or illicits. . Retired from [employer]. FAMILY HISTORY: Positive for strokes and sickle cell anemia. No seizures. ALLERGIES: Ramipril. HOME MEDICATIONS: Low dose aspirin and Plavix therapy. CURRENT MEDICATIONS: Aspirin, Plavix, Lipitor 40 mg. REVIEW OF SYSTEMS: Balance of 12 was conducted and is otherwise negative except for that detailed in the HPI or as follows. He reports having some intermittent headaches here in the hospital. He has also had some vomiting possibly of coffee-ground emesis. His Lovenox has been held. PHYSICAL EXAMINATION: Vital signs: Afebrile, blood pressure 191/84 on admission, current 143/79, pulse current 62, respirations 19, saturation 97% on room air. Mr. Thomas is supine in bed with head elevated. He is awake, alert, fully oriented. Speech is fluent. No language disturbance on bedside testing. Follows simple and complex commands. He may have some very subtle dysarthria at times during conversation. Pupils are equal, round and reactive to bright light. Gaze conjugate. Extraocular movements are full. Visual cifuentes intact to direct confrontational testing. Face symmetric with equal activation. Facial sensation reported intact. Tongue is midline. Palate elevates symmetrically. Shoulder shrug is full. No drift. Power is actually well preserved in the arms and legs as tested. I could not knot picker cloth a definite asymmetry. Rapid alternating movements may be slightly slowed on the left compared to the right. Finger to nose intact. Reports symmetric sensation to light touch in the arms and legs. Reflexes are diminished at the ankles and knees as well as wrists bilaterally. No clonus. I did not test his gait. DIAGNOSTIC DATA: CT of the head personally reviewed. There were no acute findings. He does have at least moderate chronic microvascular ischemic changes, multiple bilateral lacunes in the basal ganglia and in the debbie as well. Echocardiogram showed EF of 60%, diastolic dysfunction, no obvious mass or thrombus. Hemoglobin is 9.1, hematocrit 26 on admission, current 10 and 29.4. Creatinine 1.5. Blood sugar is 120s to 180s. AST is 70, ALT is 30. Triglycerides 83, cholesterol 74, LDL is 28, HDL is 34. ASSESSMENT AND PLAN: Possible TIA or stroke. Symptoms primarily of some speech difficulty, possible transient facial asymmetry. He does have multiple vascular risk factors including sickle cell disease, hypertension, diabetes, prior stroke and ongoing tobacco use. Additionally, a carotid Doppler in 10/2017 showed 60% to 79% stenosis of the left ICA. The sense of generalized weakness as well as the diaphoresis, however, would not be typical. I agree with MRI of the brain noncontrast. I am going to add on an MRA of the brain as well. Agree with repeat carotid Dopplers. In terms of secondary stroke prevention in this patient with sickle cell disease, he may need continued transfusions. Aside from sickle cell disease though, he has several other risk factors for stroke, thus at this point, I would continue his low dose aspirin and Plavix. It seems he has been on that prior to this hospitalization. I would not increase that given the risk of bleeding. Agree with plate grainer to evaluate for arrhythmia as a cause of his presenting symptoms. PT and OT. ST to clear for diet. Thank you for the consultation. cc: Samra Ozuna MD [facility]
--- NOTE | 2018-06-02 17:28 | Diag Imaging Result Doc PS360 ---
EXAM: MRI BRAIN W/O CONTRAST INDICATION: TIA vs. CVA COMPARISON: None. FINDINGS: There is a tiny focus of apparent restricted diffusion in the subcortical white matter of the right frontal lobe on image 28 of series 7. However, there is no definite corresponding low signal on the ADC map suggesting that this is probably T2 shine through artifact rather than an acute lacunar infarct. There is no other evidence of acute infarct. There are bilateral chronic lacunar infarcts involving the basal ganglia. There is involvement of the alvarez radiata on the left as well. There is T2/FLAIR hyperintensity in the periventricular and subcortical white matter suggesting microangiopathy that has worsened during the interval. There is no discrete intracranial mass, mass effect, or intracranial hemorrhage. There is a left mastoid air cell effusion. Surrounding soft tissues and bony structures are essentially unremarkable, otherwise. IMPRESSION: 1.Small focus of apparent restricted diffusion in the subcortical right frontal lobe. However, there is no decreased signal on the ADC map suggesting that this is likely T2 shine through artifact rather than an acute infarct. 2.Bilateral chronic lacunar infarcts as well as white matter microangiopathy that has worsened during the interval. 3.No definite acute pathology. Electronically signed by Thomas Schroeder 06/02/2018 5:26 PM
--- NOTE | 2018-06-02 17:42 | Diag Imaging Result Doc PS360 ---
EXAM: MRA BRAIN W/O CONTRAST INDICATION: tia, headache TECHNIQUE: 3-D [id number] images and 3-D MIPS were obtained. COMPARISON: None. FINDINGS: There is a small vascular outpouching arising from the distal left ICA just proximal to the takeoff of the left MCA consistent with a small aneurysm. It measures approximately 5 mm. It can be seen on image 96 of series 2. No other cerebral aneurysm is identified. There is no evidence of flow-limiting stenosis or vascular malformation involving the arteries comprising the [place] including the anterior, middle, and posterior cerebral arteries. The distal vertebral arteries and the basilar artery are unremarkable. 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 No evidence of flow-limiting stenosis involving the cerebral arteries. Electronically signed by Thomas Schroeder 06/02/2018 5:40 PM
[2018-06-02] MEDS: LIPITOR PO SCH (21:42)
[2018-06-02] MEDS: PLAVIX PO SCH (21:42)
[2018-06-02] MEDS: FOLIC ACID PO SCH (21:42)
[2018-06-02] MEDS: COLACE PO SCH (21:43)
[2018-06-03] MEDS: HUMALOG SUBQ SCH ×4 (06:19→20:46)
[2018-06-03 08:31] LABS: ALB/GLOB RATIO 1.3; ALBUMIN 3.8 g/dL (3.5-5.0); CALCIUM 8.4 mg/dL (8.8-10.2); CREATININE 1.8 mg/dL (0.7-1.2); MAGNESIUM 1.6 mg/dL (1.5-2.7); TOTAL BILIRUBIN 2.12 mg/dL (0.20-1.00); TOTAL PROTEIN 6.8 g/dL (6.3-8.3)
--- NOTE | 2018-06-03 08:50 | Diag Imaging Result Doc PS360 ---
EXAM: CHEST-2 VIEWS HISTORY: R/O pneumonia TECHNIQUE: Chest two views COMPARISON: 05/31/2017 FINDINGS: The lungs are well expanded. The heart is mildly prominent. The vessels are not distended. There are no infiltrates. No pleural effusions. IMPRESSION: No pneumonia. Electronically signed by Rick Hood 06/03/2018 8:47 AM
[2018-06-03 08:52] LABS: HEMATOCRIT 24.8 % (42.0-52.0); HEMOGLOBIN 8.6 g/dL (14.0-18.0); MCH 29.8 PG (27-31); MCHC 34.7 g/dL (33-37); MCV 85.8 FL (81-99); MPV 10.7 FL (7.4-10.4); PLT 114 X1000 (130-400); RBC 2.89 XMIL (4.7-6.1); RDW 20.8 % (11.5-14.5); WBC 13.58 X1000 (4.8-10.8)
[2018-06-03] MEDS: COREG PO SCH ×2 (09:12→20:48)
[2018-06-03] MEDS: THERA M PLUS PO SCH (09:12)
[2018-06-03] MEDS: SODIUM CHLORIDE 0.9% INJ SCH ×2 (09:12→20:48)
[2018-06-03] MEDS: APRESOLINE PO SCH ×3 (09:12→21:43)
[2018-06-03] MEDS: PROTONIX IV SCH ×2 (09:12→20:48)
[2018-06-03] MEDS: VITAMIN B-12 PO SCH (09:12)
[2018-06-03] MEDS: ASPIRIN PO SCH (09:12)
[2018-06-03] MEDS: COZAAR PO SCH (09:12)
[2018-06-03 10:47] LABS: MONO 6 % (1-9); SEGS 72 % (42-75)
[2018-06-03 10:49] LABS: LYMPHS 21 % (21-51); NRBC 22 % (0-0)
[2018-06-03 10:50] LABS: ANISOCYTOSIS 2+; HYPOCHROM 1+; LARGE PLATELETS 1+; POIKILOCYTOSIS 2+; SICKLE CELLS 1+; TARGET CELLS 1+
[2018-06-03] MEDS: 1/2 NS 1,000 ML IV SCH (12:11)
--- NOTE | 2018-06-03 13:00 | PROGRESS NOTE ---
DATE: 06/03/2018 SUBJECTIVE: The patient is sitting up in a chair. He is awake and alert. His speech is stronger today. He denies any further episodes of nausea or vomiting. No reported blood in the stool or black stools. The patient states he is tolerating a liquid diet without problems. His is with him today. OBJECTIVE: Vital Signs: Temperature 98.9 degrees, pulse 99, respirations 20, blood pressure 134/79. General: The patient is awake and alert. He is sitting up in a chair, in no acute distress. LABORATORY: Hematology: WBC 13.58, hemoglobin 8.6, hematocrit 24.8, MCV 85.8, platelets 114,000. Chemistry: Sodium 143, potassium 4.0, chloride 104, CO2 26, BUN 29, creatinine 1.8, glucose 106, total bilirubin 2.12, AST 60, ALT 28, alkaline phosphatase 109. ASSESSMENT AND PLAN: 1. Possible transient ischemic attack versus cerebrovascular accident. Neurology has seen the patient and plans for workup. 2. Questionable hematemesis. The patient had an episode of nausea and vomiting with possible coffee-grounds emesis. The patient is on aspirin and Plavix. Lovenox was discontinued. Hemoglobin and hematocrit slightly lower today than yesterday. Would continue to follow. Would hold off proceeding with EGD at this time due to patient being on aspirin and Plavix, and possible recent cerebrovascular accident versus transient ischemic attack. Recommend continued workup by Neurology. 3. Sickle cell disease. The patient is followed with Dr. Arango. 4. Continue proton pump inhibitor. Will monitor for any further active bleeding. Further plans to be made according to the patient's progress. I have discussed this case with Dr. Fernandez. Dictated by TREVOR Donald for Danilo Fernandez MD cc: TREVOR White MD
--- NOTE | 2018-06-03 13:36 | PROGRESS NOTE ---
DATE: 06/03/2018 SUBJECTIVE: The patient reports feeling fine. No more episodes of vomiting, bloody, or hematemesis. OBJECTIVE: Vital Signs: Temperature 98.9 degrees, heart rate 99, respiratory rate 20, blood pressure 134/79, O2 saturation 96% on room air. General Examination: This is a chronically ill appearing 72-year-old male, lying in bed, in no acute distress. HEENT: Head is normocephalic, atraumatic. Neck: No JVD noted. No carotid bruits. No lymphadenopathy. No thyromegaly. Cardiovascular: S1, S2 heard. No murmurs, gallops, or rubs. Regular rate and rhythm. Respiratory: Clear bilaterally to auscultation. No work of breathing or using accessory muscles. Abdomen: Soft, nontender to palpation. Bowel sounds present. No organomegaly. Extremities: No clubbing, cyanosis, or edema. Peripheral pulses present in both legs. Neurological: Patient has residual left facial weakness and also left upper and lower extremity weakness 4/5 with some muscle rigidity. Speech is coherent. No slurred speech. LABORATORY DATA: White cell count 13.50, hemoglobin 8.6, hematocrit 24.8, platelets 114,000. BMP: Remarkable for creatinine 1.8 glucose 106. ASSESSMENT: 1. Transient ischemic attack. No more further episodes while he is in the hospital. Neurology has evaluated this patient. We will follow recommendations. Echocardiogram was also okay. 2. Sickle cell disease. Aware. Patient is on IV fluids. Patient is not having any acute crisis. 3. Likely upper gastrointestinal bleed. The patient is on aspirin and Plavix. He had 1 episode of hematemesis and still on aspirin 80 medications 81 mg and Plavix 75. Gastroenterology has been consulted. They are not planning to do any procedure because patient continues to be on Plavix. I think it is most reasonable to continue with that medication considering that his hemoglobin is stable. We will continue to monitor this patient closely. 4. Hypertension. Blood pressure is under control. We will continue with the same medications. 5. Hyperlipidemia. We will continue with atorvastatin. 6. Chronic kidney disease. Patient is at his historical baseline. We will continue to monitor. 7. Diabetes mellitus type 2. Well controlled. Hemoglobin A1c is 4.4. We will continue with sliding scale insulin and Accu-Chek before meals and also at bedtime. 8. Gastroesophageal reflux disease. We will continue with Protonix. 9. Deep vein thrombosis prophylaxis. The patient is on SCDs. Lovenox has been stopped because of possible GI bleeding. 10. Hyponatremia resolved. DISPOSITION: We will continue to monitor this patient closely. I think if hemoglobin is stable tomorrow and no new recommendations from neurology, patient can be safely discharged. cc: Tyree Chang MD
[2018-06-03] MEDS: CARAFATE LIQUID PO SCH ×2 (13:59→20:48)
--- NOTE | 2018-06-03 17:22 | PROGRESS NOTE ---
DATE: 06/03/2018 SUBJECTIVE: No major overnight events. The patient continues to feel better. OBJECTIVE: Afebrile currently. Around midnight he had a T-max of 99.9. Blood pressure 130s to 150s systolic over 70s to 80s diastolic. Pulse 99 to the low 100s. Respirations 20. Oxygen saturation 96% on room air. General: Mr. Thomas is awake, alert, and oriented. He follows simple and complex commands. No language disturbance on bedside testing. HEENT : Pupils are equal, round, and reactive. Gaze is conjugate. Extraocular movements are full. Face is symmetric with equal activation. Extremities: He has good power in the arms and legs. MRI of the brain did not show acute findings. There are bilateral chronic lacunar infarcts and microvascular ischemic disease. 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 LABS: White count has been trending upwards. Hemoglobin is 8.6 and hematocrit 24.8 today. BUN is 29. Creatinine is trending up today at 1.8. ASSESSMENT AND PLAN: Possible transient ischemic attack. There was no evidence of stroke on the imaging. Carotid Dopplers are pending. 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 This appears to be an incidental finding. Again, aside from sickle cell disease he has several other risk factors for ischemic stroke. He would benefit from antiplatelet therapy for secondary stroke prevention. His neurologist is Dr. Yoel Diaz, and the patient and state that he has him on low dose aspirin and Plavix for this purpose. He will need a followup appointment with Dr. Diaz upon discharge. The aneurysm will need to be monitored intermittently with repeat imaging or if concern arises then a neurosurgical evaluation would be warranted. Of note, the aneurysm would need to be considered before any potential surgical procedures to the left carotid. No further suggestions to add to my note from yesterday. cc: Samra Ozuna MD MTDRon
[2018-06-03] MEDS: COLACE PO SCH (20:48)
[2018-06-03] MEDS: PLAVIX PO SCH (20:48)
[2018-06-03] MEDS: LIPITOR PO SCH (20:49)
[2018-06-03] MEDS: FOLIC ACID PO SCH (20:49)
[2018-06-03] MEDS: NORCO-10 PO PRN (22:04)
[2018-06-04] MEDS: CARAFATE LIQUID PO SCH ×4 (02:01→20:36)
[2018-06-04] MEDS: 1/2 NS 1,000 ML IV SCH (05:26)
[2018-06-04] MEDS: HUMALOG SUBQ SCH ×4 (06:46→21:34)
[2018-06-04 07:51] LABS: HEMATOCRIT 23.3 % (42.0-52.0); HEMOGLOBIN 7.9 g/dL (14.0-18.0); MCHC 33.9 g/dL (33-37); MCV 85.7 FL (81-99); MPV 10.7 FL (7.4-10.4); PLT 141 X1000 (130-400); RBC 2.72 XMIL (4.7-6.1); RDW 21.2 % (11.5-14.5)
[2018-06-04 08:23] LABS: CALCIUM 8.5 mg/dL (8.8-10.2); CREATININE 1.8 mg/dL (0.7-1.2); POTASSIUM 3.9 mmol/L (3.5-5.1)
--- NOTE | 2018-06-04 08:28 | HEMO/ONC CONSULTATION ---
DATE: 06/02/2018 ADMITTING AND REQUESTING PHYSICIAN: Brandan Díaz MD. We appreciate this consult. CHIEF COMPLAINT: History of sickle cell anemia. HISTORY OF PRESENT ILLNESS: Mr. Thomas is a 72-year-old, male, well known to Dr. Arango with a history of sickle cell disease. He has had 3 previous strokes, as well as TIAs. Additionally, he suffers from hypertension and diabetes mellitus type 2. The patient takes aspirin and Plavix daily as directed by his neurologist. On the day of admission, the patient reports that he began to have significant weakness and diaphoresis after showering. Additionally, he had a facial droop and reported some facial weakness as well as slurred speech. The patient was brought to [facility] Emergency Department by ambulance. At the time of arrival, symptoms had resolved. CT of the head was obtained which revealed rather advanced chronic ischemic changes and no acute process. The patient is lying supine in bed in no immediate distress. He is not currently in a sickle cell crisis. We are consulted as he is well known to us. PAST MEDICAL HISTORY: 1. Sickle cell disease. 2. Hypertension. 3. Chronic kidney disease. 4. Diabetes mellitus type 2. 5. History of stroke x3. 6. Multiple TIAs. 7. Gastroesophageal reflux disease. PAST SURGICAL HISTORY: 1. Cholecystectomy. 2. Bilateral cataract extraction. SOCIAL HISTORY: The patient smokes 1/3 pack cigarettes daily. He does not use alcohol or illicit drugs. FAMILY HISTORY: Significant for 3 grandchildren with sickle cell disease. He has no other history of family hematologic or oncologic disease. MEDICATIONS ON ADMISSION: 1. Aspirin 81 mg. 2. Atorvastatin 40 mg. 3. Coreg. 4. Plavix. 5. Vitamin B12. 6. Docusate sodium. 7. Folic acid. 8. Glimepiride. 9. [place]. 10. Losartan. 11. Multivitamins. 12. Omeprazole. REVIEW OF SYSTEMS: A 14 point review of systems was obtained and is negative except for as mentioned in HPI. LABORATORY DATA: Hemoglobin is 10.0, hematocrit 29.4, white blood cell count is 13.30, platelets 160. IMAGING STUDIES: CT of the head reveals advanced chronic ischemic changes and no acute disease. Chest x-ray reveals cardiomegaly with no change from prior. ASSESSMENT AND PLAN: 1. Transient ischemic attack versus cerebrovascular accident. The patient has no new focal deficits. CT of the head was negative for any acute pathology. MRI of the brain is currently pending. Neurology was consulted and is following. 2. Sickle cell disease. Stable at this time. The patient remains on IV fluids and pain medication as prescribed. 3. Hypertension. Permissive hypertension is currently prescribed. Blood pressure 174/95. 4. Hyperlipidemia. Will continue medications as prescribed. 5. Diabetes mellitus type 2. Would monitor glucose and continue medications. 6. Gastroesophageal reflux disease. Stable on a proton pump inhibitor. We will follow along with you and make further recommendations pending outcomes. The above reflects the history, exam, assessment and plan of Dr. Arango. Dictated by TREVOR Cobb for Bay Arango MD cc: TREVOR Cobb MD
[2018-06-04] MEDS: NORCO-10 PO PRN ×2 (08:37→21:33)
[2018-06-04 08:43] LABS: ANISOCYTOSIS 1+; BANDS 1 % (0-1); HYPOCHROM 1+; LYMPHS 21 % (21-51); MONO 13 % (1-9); NRBC 28 % (0-0); POIKILOCYTOSIS 2+; SEGS 64 % (42-75); SICKLE CELLS 1+; TARGET CELLS 1+
[2018-06-04 08:44] LABS: LARGE PLATELETS 1+
[2018-06-04] MEDS: THERA M PLUS PO SCH (08:46)
[2018-06-04] MEDS: SODIUM CHLORIDE 0.9% INJ SCH (08:46)
[2018-06-04] MEDS: PROTONIX IV SCH ×3 (08:46→22:31)
[2018-06-04] MEDS: COREG PO SCH ×2 (08:47→20:36)
[2018-06-04] MEDS: COZAAR PO SCH (08:47)
[2018-06-04] MEDS: ASPIRIN PO SCH (08:47)
[2018-06-04] MEDS: APRESOLINE PO SCH ×3 (08:47→20:36)
[2018-06-04] MEDS: VITAMIN B-12 PO SCH (08:47)
--- NOTE | 2018-06-04 10:31 | PROGRESS NOTE ---
DATE: 06/04/2018 SUBJECTIVE: The patient reports feeling okay. Denies any more episodes of vomiting, any bloody stool, or hematemesis. OBJECTIVE: Vital Signs: Temperature is 97.7 degrees, heart rate 110, respiratory rate 20, blood pressure 161/89, O2 saturation 94% on room air. General Examination: This is a chronically ill- appearing 72-year-old, -[place] male lying in bed, in no acute distress. HEENT: Head is normocephalic. Cardiovascular Examination: S1 and S2 heard. No murmurs, gallops, or rubs. Regular rate and rhythm. Respiratory Examination: Clear bilaterally to auscultation. No work of breathing or using accessory muscles. Abdomen: Soft, nontender to palpation, nondistended. Bowel sounds present. No organomegaly. No signs of peritoneal irritation. Extremities: No clubbing, cyanosis, or edema. Peripheral pulses present in both legs. Neurological Examination: The patient has residual left facial weakness and also left upper and lower extremity weakness at 4/5 with some muscle rigidity but the speech is coherent. The patient has not had any slurred speech. Laboratory Data: White cell count 11.6, hemoglobin 7.9, hematocrit 23.3, platelets 141,000. Creatinine 1.8, calcium 8.5. ASSESSMENT AND PLAN: 1. Transient ischemic attack. No more episodes while this patient was in the hospital. Neurology has been consulted. Recommendation is to continue with aspirin and Plavix. No other recommendations. 2. Sickle cell disease. The patient is not having any crisis. Patient is on intravenous fluids. We will provide pain medications if needed. 3. Suspected upper gastrointestinal bleeding. The patient is still on aspirin and Plavix. Gastroenterology is not planning to do any procedure because the patient is still on Plavix. Considering risks versus benefits, I think it is more beneficial for him to continue with those medication then stopping them. Hemoglobin has dropped a little bit today so we will keep this patient at least until tomorrow and see if that continues to drop or not. We will continue with the same management. 4. Hypertension. Blood pressure is under control. We will continue with the same medication. 5. Hyperlipidemia. We will continue with atorvastatin. 6. Chronic kidney disease stage 3. The patient is at his baseline. 7. Diabetes mellitus type 2, very well controlled with hemoglobin A1c of 4.4. We will continue with sliding scale insulin, and Accu-Chek before meals and also at bedtime. 8. Gastroesophageal reflux disease. We will continue with Protonix. 9. Deep vein thrombosis prophylaxis. Patient is on sequential compression devices. Lovenox has been stopped because of possible gastrointestinal bleeding. 10. Hyponatremia, resolved. 11. Disposition. At this point, I am planning to keep this patient 1 more day. If hemoglobin is stable tomorrow, we will discharge him but I think it is more beneficial for him to continue with aspirin and Plavix considering his history of prior strokes. cc: Tyree Chang MD
--- NOTE | 2018-06-04 14:27 | PROGRESS NOTE ---
DATE: 06/04/2018 SUBJECTIVE: The patient was asleep, in no acute distress. His was at the bedside. I have spoken with her. She states there has been no evidence of nausea or vomiting and no active bleeding. Patient was tolerating a liquid diet, and it has been advanced today. OBJECTIVE: Vital Signs: Temperature 97.9 degrees, pulse 104, respirations 20, blood pressure 123/71. General: Patient is resting with eyes closed in no acute distress. LABORATORY: Hematology: WBC 11.60, hemoglobin 7.9, hematocrit 23.3, MCV 85.7. Chemistry: Sodium 139, potassium 3.9, chloride 104, CO2 25. BUN 24, creatinine 1.8, glucose 105, calcium 8.5. Total bilirubin 2.12, AST 60, ALT 28, alkaline phosphatase 109. ASSESSMENT AND PLAN: 1. Transient ischemic attack. Patient has no acute episodes at the present time. Patient has been seen by Neurology. 2. Sickle cell disease. The patient follows with Dr. Arango. 3. Anemia. Patient has orders for packed red blood cell transfusion today. His hemoglobin and hematocrit have dropped over the last several days. 4. Questionable gastrointestinal bleeding. Patient has had no further episodes of nausea or vomiting. No visible episode of blood in the stool. Will continue to monitor for any active bleeding. Monitor hemoglobin and hematocrit and transfuse further packed red blood cells as needed. At present time, would not proceed with endoscopy because patient is on Plavix and aspirin and has had recent transient ischemic attack. Depending on his progress, further plans to be made. I have discussed this case with Dr. Fernandez. Dictated by TREVOR Donald for Danilo Fernandez MD cc: TREVOR White MD
[2018-06-04] MEDS ORDERED: NS 250 ML ONE (15:12)
[2018-06-04] MEDS: COLACE PO SCH (20:36)
[2018-06-04] MEDS: FOLIC ACID PO SCH (20:36)
[2018-06-04] MEDS: LIPITOR PO SCH (20:36)
[2018-06-04] MEDS: PLAVIX PO SCH (20:39)
[2018-06-05] MEDS: 1/2 NS 1,000 ML IV SCH (01:37)
[2018-06-05] MEDS: CARAFATE LIQUID PO SCH ×3 (01:37→13:12)
[2018-06-05] MEDS: HUMALOG SUBQ SCH ×2 (06:18→12:09)
[2018-06-05] MEDS: NORCO-10 PO PRN (08:19)
[2018-06-05] MEDS: APRESOLINE PO SCH ×2 (08:21→13:12)
[2018-06-05] MEDS: COZAAR PO SCH (08:21)
[2018-06-05] MEDS: ASPIRIN PO SCH (08:21)
[2018-06-05] MEDS: THERA M PLUS PO SCH (08:21)
[2018-06-05] MEDS: COREG PO SCH (08:21)
[2018-06-05] MEDS: VITAMIN B-12 PO SCH (08:21)
[2018-06-05] MEDS: PROTONIX IV SCH ×2 (08:22→12:06)
[2018-06-05 08:25] LABS: HEMATOCRIT 32.4 % (42.0-52.0); MCH 29.6 PG (27-31); MCV 87.3 FL (81-99); MPV 10.6 FL (7.4-10.4); PLT 173 X1000 (130-400); RBC 3.71 XMIL (4.7-6.1); RDW 19.5 % (11.5-14.5)
[2018-06-05 08:27] LABS: CALCIUM 8.8 mg/dL (8.8-10.2); CREATININE 1.7 mg/dL (0.7-1.2); POTASSIUM 3.8 mmol/L (3.5-5.1)
[2018-06-05 09:12] LABS: BANDS 2 % (0-1); LYMPHS 18 % (21-51); MONO 2 % (1-9); NRBC 35 % (0-0); SEGS 72 % (42-75)
[2018-06-05 14:19] VITALS: BP 142/85
--- NOTE | 2018-06-05 21:07 | Carotid Study ---
DATE: 06/01/2018 PROCEDURE: Carotid duplex imaging. REFERRING PHYSICIAN: Dr. Jaret Mazariegos. INTERPRETING PHYSICIAN: Dmitriy Quinones MD. INDICATIONS: CVA. Exam for comparison, 11/07/2017. OBSERVED DATA RIGHT LEFT Brachial Blood Pressure Carotid Pulse Bruits: Carotid/Sub DIAGRAM OF ULTRASOUND IMAGING R L RIGHT INT EXT INT EXT LEFT Tom (cm/s) Tom (cm/s) Subclavian 66/0 Subclavian 73/0 CCA Proximal 78/60 CCA Proximal 81/13 CCA Distal 88/18 CCA Distal 76/19 Bulb 86/11 Bulb 73/14 ICA Proximal 96/15 ICA Proximal 79/18 ICA Mid 54/15 ICA Mid 72/24 ICA Distal 67/20 ICA Distal 133/45 ECA 79/9 ECA 66/20 Vertebral 54/7 A Vertebral 54/16 A ICA/CCA Ratio 1.09 ICA/CCA Ratio 1.63 % Stenosis 0-39 % Stenosis 40-59 FINDINGS: There are no significant atherosclerotic changes noted in the right carotid artery system. On the left, the vessels again remain very tortuous. The velocities are slightly improved, and based off strict velocity criteria, would correlate to a 40% to 59% lesion, which is improved when compared to previous. SUMMARY: No significant stenosis noted. Very tortuous vessels on the left which possibly could contribute to the elevation of velocity noted. cc: MD Jaret Wadsworth MD
--- NOTE | 2018-06-06 05:36 | DISCHARGE SUMMARY ---
ADMISSION DATE: 05/31/2018 DISCHARGE DATE: 06/05/2018 DISCHARGE DIAGNOSES: 1. Transient ischemic attack. 2. Sickle cell disease, not in any crisis. 3. Gastrointestinal bleeding, resolved. 4. Hypertension. 5. Hyperlipidemia. 6. Chronic kidney disease stage 3. 7. Diabetes mellitus type 2. 8. Gastroesophageal reflux disease. CONSULTATIONS: 1. Dr. Samra Ozuna from Neurology. 2. Dr. Fernandez from Gastroenterology. 3. Dr. Arango from Hematology/Oncology. PROCEDURES: 1. Chest x-ray done on admission showed cardiomegaly but no change from prior. 2. Head CT showed advanced chronic ischemic changes but no acute process. 3. Brain MRI showed a small focus of apparent restricted diffusion in the subcortical right frontal lobe that looks like more an artifact rather than acute infarct. 4. Bilateral chronic lacunar infarct as well as white matter microangiopathy that has worsened during the interval, but no definite acute pathology. 5. MRA of the brain showed a small aneurysm involving the distal left ICA as described with no evidence of flow-limiting stenosis involving the cerebral artery. HOSPITAL COURSE: This is a 72-year-old male with a history of sickle cell disease, 3 previous strokes, hypertension and diabetes who reports he had a TIA in 2011, October of 2017, and also in September of 2017 he had a CVA which left him left-sided deficits. The patient reported some slurred speech and facial droop and drawing of his face so he was brought to the emergency department suspecting another stroke. Imaging showed as above. Neurology was consulted, the recommendation was to continue with aspirin and Plavix. After 3 days in the hospital the patient reports having coffee-ground emesis. We consulted GI and they said that we need to monitor hemoglobin, but they preferred not to do any procedure yet. We will follow a CBC. As per Hematology indication they ordered to transfuse 2 units of blood. The patient has not had any more episodes of vomiting blood or coffee-grounds emesis. The patient did not have any more neurological symptoms, so the patient is being discharged in stable condition. There was a question about continuing or stopping both antiplatelet medication in this case aspirin and Plavix. I do personally think that this patient needs to continue with both considering risks versus benefit because we were not able to find out any overt bleeding, so it is definitely more beneficial to keep him on both medication considering his history of recurrent strokes. The patient is going to be seen by his primary neurologist Dr. Diaz in [place] in 1-2 weeks. The patient is being discharged in stable condition. DISCHARGE PHYSICAL EXAMINATION: Vital Signs: Temperature 98.3 degrees, heart rate 104, respiratory rate 18, blood pressure 142/85, O2 saturation 94% on room air. General: This is a chronically ill-appearing 72-year-old male lying in bed in no acute distress. HEENT: Head is normocephalic and atraumatic. Anicteric sclerae. [place] conjunctivae. Mucous membranes dry. Neck: No JVD noted. No carotid bruits. No lymphadenopathy. No thyromegaly. Cardiovascular: S1 and S2 heard. No murmurs, gallops or rubs. Regular rate and rhythm. Respiratory: Clear bilaterally to auscultation. No work of breathing or using accessory muscles. Abdomen: Soft, nontender to palpation. Bowel sounds present. No organomegaly. Extremities: No clubbing, cyanosis or edema. Peripheral pulses present in both lower extremities. Neurologic: The patient is alert oriented x3. Moves all 4 extremities. DISCHARGE DISPOSITION: Home with home health. The patient requests to have speech therapy and physical therapy at home. DISCHARGE MEDICATIONS: 1. Coreg 12.5 mg 1 tablet p.o. every 12 hours. 2. Sucralfate 1 g p.o. q.6 hours for 1 month. 3. Folic acid 1 tablet p.o. daily. 4. Glimepiride 1 mg 1 tablet p.o. b.i.d. 5. Losartan 50 mg 1 tablet p.o. daily. 6. Multivitamin 1 tablet p.o. daily. 7. Omeprazole 40 mg 1 tablet p.o. in the morning. 8. Plavix 75 mg 1 tablet p.o. daily. 9. Cyanocobalamin 1000 mcg 1 tablet p.o. daily. 10. [place] 7.5 mg 1 tablet p.o. every 6-8 hours as needed for pain. 11. Aspirin 81 mg 1 tablet p.o. daily. 12. Atorvastatin 40 mg 1 tablet p.o. daily. 13. Docusate 100 mg 1 tablet p.o. daily. FOLLOW-UP: 1. Follow with Dr. Santiago at [facility] in [place] in 1-2 weeks. 2. Follow up with Dr. Chas Salgado his primary care doctor in 2 weeks. TIME SPENT: For discharge was 33 minutes. cc: Tyree Chang MD
== END 2018-06-05 16:41 | disposition home health service (06) | DRG 69 ==
LOC: SUPCPDRO → ED 20:23 → SUATTDRO 23:58 → 3N 23:58
PROVIDERS: ATTEND Internal Medicine
CPT/HCPCS: 36430; 70450; 70544; 70551; 71010; 71020; 71045; 71046; 80048; 80053; 80061; 81001; 82550; 82948; 83036; 83721; 83735; 84100; 84484; 85025; 85610; 85730; 86850; 86900; 86901; 86905; 86920; 86922; 87040; 87077; 87088; 87186; 93005; 93306; 93880; 94761; 99285; A9270; C9113; J0360; J1650; J1815; J2405; J7030; J7050; P9016; S0164; XXXXX

== ENCOUNTER 2018-07-18 20:34 | Inpatient (IN) ==
[2018-07-19 00:33] LABS: HEMATOCRIT 27.7 % (42.0-52.0); HEMOGLOBIN 9.5 g/dL (14.0-18.0); MCH 30.2 PG (27-31); MCHC 34.3 g/dL (33-37); MCV 87.9 FL (81-99); MPV 10.5 FL (7.4-10.4); PLT 195 X1000 (130-400); RBC 3.15 XMIL (4.7-6.1); WBC 9.36 X1000 (4.8-10.8)
[2018-07-19 00:46] LABS: ALB/GLOB RATIO 1.4; ALBUMIN 4.2 g/dL (3.5-5.0); CALCIUM 8.8 mg/dL (8.8-10.2); CREATININE 1.7 mg/dL (0.7-1.2); POTASSIUM 4.1 mmol/L (3.5-5.1); TOTAL BILIRUBIN 2.11 mg/dL (0.20-1.00); TOTAL PROTEIN 7.1 g/dL (6.3-8.3)
[2018-07-19 00:58] LABS: BANDS 2 % (0-1); LYMPHS 20 % (21-51); NRBC 6 % (0-0); SEGS 78 % (42-75)
[2018-07-19 00:59] LABS: SICKLE CELLS 1+; TARGET CELLS 1+
[2018-07-19] MEDS ORDERED: CARAFATE LIQUID PO PRN (03:06)
[2018-07-19] MEDS ORDERED: ATIVAN PO PRN (03:06)
[2018-07-19] MEDS ORDERED: ZOFRAN IV PRN (03:08)
[2018-07-19] MEDS: LOVENOX SUBQ SCH (03:15)
[2018-07-19] MEDS: NS 1,000 ML IV SCH ×2 (03:38→18:26)
[2018-07-19] MEDS: NORCO-7.5 PO PRN ×3 (03:42→19:28)
[2018-07-19 04:45] LABS: RETIC% 4.71 % (0.8-2.1); RETIC-HE 28.2 PG (28.2-36.6)
--- NOTE | 2018-07-19 07:51 | Diag Imaging Result Doc PS360 ---
EXAM: CHEST-PORTABLE - 07/18/2018 HISTORY: sweats TECHNIQUE: Portable chest COMPARISON: 06/03/2018 FINDINGS: There is stable mild cardiomegaly. There is mild basilar linear atelectasis and/or scarring. There is no consolidation, pleural effusion, or pneumothorax identified. IMPRESSION: Stable mild cardiomegaly. Mild basilar linear atelectasis and/or scarring. No other evidence of acute disease. Electronically signed by Pan Myrick 07/19/2018 7:49 AM
[2018-07-19] MEDS: COREG PO SCH ×3 (08:41→21:27)
[2018-07-19] MEDS: CENTRUM SILVER PO SCH (08:41)
[2018-07-19] MEDS: ASPIRIN PO SCH (08:41)
[2018-07-19] MEDS: LIPITOR PO SCH (08:41)
[2018-07-19] MEDS: PRILOSEC PO SCH ×2 (08:41→08:43)
[2018-07-19] MEDS: PLAVIX PO SCH (08:41)
[2018-07-19] MEDS: VITAMIN B-12 PO SCH (08:41)
[2018-07-19] MEDS: FOLIC ACID PO SCH (08:41)
[2018-07-19] MEDS: SENOKOT PO SCH (08:42)
[2018-07-19] MEDS: COLACE PO SCH (08:42)
[2018-07-19] MEDS: MIRALAX PO SCH (08:42)
[2018-07-19] MEDS: COZAAR PO SCH (08:42)
--- NOTE | 2018-07-19 14:10 | PROGRESS NOTE ---
DATE: 07/19/2018 SUBJECTIVE: Chest x-ray from yesterday stable mild cardiomegaly, basilar linear atelectasis. The patient presented. He reported that he started having chest pain on the right side that started yesterday. I looked back where he has had an echocardiogram back 06/01/2018, history from 06/01/2018. He is followed by Dr. Diaz in [place], Dr. Bay Arango, and Dr. Mikhail Salgado. This is a 72-year-old male, history of sickle cell disease, 3 previous strokes, hypertension, diabetes mellitus. Patient states that he did have a TIA in 2011 and October 2017 and just a month prior to last TIA in September 2017, had a CVA. It did leave him with left-sided defects. He does have some right weakness . Still has some difficulty with speech. He presented with left-sided chest pain on this opportunity and he describes some hyperesthesia. I cannot reproduce the pain with palpation on that right side, but no squeezing or pressure type pain. LABORATORY DATA: His enzymes, troponin 0.012, 0.034. Creatinine is 1.7. Sodium 145, potassium 4.1, chloride 107, BUN 17. Chest x-ray, stable mild cardiomegaly, mild basilar linear atelectasis. ASSESSMENT AND PLAN: 1. Atypical chest pain. Do not see clinical evidence to suggest cardiac ischemia. Blood pressures appear well controlled. Cardiology is to see. His systolic blood pressures have been running 180s to 190s. Looking at his medication, he is on Cozaar 50 mg once a day. 2. History of sickle cell. This could be part of sickle cell symptomatology with right-sided chest wall pain. 3. Sickle cell anemia. 4. Hypertension. 5. Chronic kidney disease. Serum creatinine in the past has been between 1.3 and 1.8. 6. Diabetes mellitus type 2. Will follow sugar. 7. History of cerebrovascular accident x3, a transient ischemic attack back in 2011. Had a cerebrovascular accident in 2018 that left him with residual left-sided weakness and some speech disturbance. 8. Gastroesophageal reflux disease. Note that his hematocrit is 27, hemoglobin is 9.5. Sodium 145, potassium 4.1, chloride 101, BUN 17, creatinine 1.7. REVIEW OF CURRENT ORDERS: I do not see any change. He is on Carafate 1 g p.o. q.6 hours p.r.n., Coreg 12.5 mg q.12 hours, aspirin 81 mg a day, Lipitor 40 mg a day, Plavix 75 mg a day, vitamin B12 1000 mcg daily, Colace 100 mg p.o. daily, Lovenox 40 mg subcutaneous daily, folic acid 1 mg daily, hydrocodone 7.5 mg q.6 to 8 hours, Ativan 0.5 mg t.i.d., Cozaar 50 mg a day, multivitamin 1 a day, normal saline at 70 mL an hour, MiraLAX 17 g daily, Senokot 1 p.o. daily, and multivitamin daily. cc: Chava Everett MD MTDD
--- NOTE | 2018-07-19 14:39 | CONSULTATION ---
DATE OF CONSULTATION: 07/19/2018 IMPRESSION: 1. Episode of weakness of unclear etiology. Patient has had previous episode and underlying cerebrovascular disease was suspected. 2. Recurrent cerebrovascular accidents and previous transient ischemic attack. 3. Type 2 diabetes mellitus. 4. Hypertension. 5. Sickle cell anemia. 6. Chronic kidney disease. RECOMMENDATIONS: 1. Telemetry observation. 2. Repeat echocardiogram not needed. Previous echocardiography last month demonstrated normal left ventricular ejection fraction. There was evidence of moderate left atrial enlargement. 3. Consider possibility of paroxysmal atrial fibrillation in light of patient's symptoms, previous cerebrovascular accident, and left atrial enlargement. 4. With regard to the patient's atypical chest discomfort, this is highly atypical and likely noncardiac. 5. Consider followup neurology consultation. HISTORY: This 72-year-old -[place] male, with past history of recurrent cerebrovascular accident, previous transient ischemic attack, type 2 diabetes mellitus, hypertension, and sickle cell anemia, was admitted yesterday evening after he had a recurrent episode of weakness after he had a shower. He relates that yesterday evening he took a shower, and upon finishing this, he became very weak all over. This lasted about 15 minutes. He relates it is very similar to a previous episode last month for which he was hospitalized, and cerebrovascular disease was suspected as possibly culprit. He has no history of coronary disease nor angina. He does relate some right axillary discomfort for the past 3 to 4 days. He denies any associated palpitations. He is not aware of any previous arrhythmias. There has been no syncope. PAST MEDICAL HISTORY: 1. Recurrent cerebrovascular accident and previous transient ischemic attack. 2. Type 2 diabetes mellitus. 3. Hypertension. 4. Sickle cell anemia. 5. Chronic kidney disease. PAST SURGICAL HISTORY: Includes cholecystectomy. ALLERGIES: He is allergic or intolerant to ramipril. MEDICATIONS PRIOR TO ADMISSION: As listed. SOCIAL HISTORY: He has history of longstanding cigarette use, but has cut down. He currently smokes 4 or 5 cigarettes per day. He does not use alcohol. He is . He is retired from [employer]. FAMILY HISTORY: Negative for premature coronary disease and positive for strokes as well as sickle cell anemia. REVIEW OF SYSTEMS: Pulmonary: Negative. Gastrointestinal: Noncontributory beyond History of Present Illness. Constitutional: Noncontributory beyond History of Present Illness. Remainder of review of systems negative/noncontributory beyond History of Present Illness, with 14 total systems reviewed. PHYSICAL EXAMINATION: General: This is a pleasant, older, male in no distress. Vital Signs: Blood pressure 179/86, heart rate 85, oxygen saturation 97%. HEENT: Extraocular movements appear intact. Mucous membranes are moist. Neck: Supple. No jugular venous distention. There are no carotid bruits. Chest: Clear to auscultation. Cardiac: Regular rate and rhythm without appreciable murmur or gallop. Abdomen: Soft. Bowel sounds normal. Extremities: Without edema. Neurologic: Reveals him to be alert and oriented. Speech is fluent. He moves all 4 extremities equally well. DIAGNOSTIC DATA: A 12-lead EKG demonstrates normal sinus rhythm and is within normal limits. Laboratory data includes a white blood cell count of 9.36, hematocrit 27.7, hemoglobin 9.5, platelet count 195,000. Sodium 145, potassium 4.1, chloride 107, carbon dioxide 28, BUN 17, creatinine 1.7, glucose 173, triglycerides 62, total cholesterol 70, LDL cholesterol 28, HDL cholesterol 38. cc: Ray Peres MD
[2018-07-19] MEDS: RESTORIL PO SCH ×2 (19:28→21:28)
[2018-07-20] MEDS: LOVENOX SUBQ SCH (06:46)
[2018-07-20 07:15] LABS: HEMATOCRIT 27.2 % (42.0-52.0); HEMOGLOBIN 9.2 g/dL (14.0-18.0); MCH 29.6 PG (27-31); MCHC 33.8 g/dL (33-37); MCV 87.5 FL (81-99); MPV 10.7 FL (7.4-10.4); PLT 183 X1000 (130-400); RBC 3.11 XMIL (4.7-6.1); RDW 19.9 % (11.5-14.5); WBC 8.34 X1000 (4.8-10.8)
[2018-07-20 07:31] LABS: BANDS 4 % (0-1); EOS 8 % (1-10); LYMPHS 46 % (21-51); NRBC 5 % (0-0); POLYCHROM OCCASIONAL; SEGS 40 % (42-75); SICKLE CELLS OCCASIONAL; TARGET CELLS 1+
[2018-07-20 07:46] LABS: CALCIUM 8.5 mg/dL (8.8-10.2); CREATININE 1.4 mg/dL (0.7-1.2); POTASSIUM 4.2 mmol/L (3.5-5.1)
[2018-07-20] MEDS: SENOKOT PO SCH (09:38)
[2018-07-20] MEDS: COZAAR PO SCH (09:38)
[2018-07-20] MEDS: MIRALAX PO SCH (09:38)
[2018-07-20] MEDS: COREG PO SCH (09:38)
[2018-07-20] MEDS: CENTRUM SILVER PO SCH (09:38)
[2018-07-20] MEDS: VITAMIN B-12 PO SCH (09:38)
[2018-07-20] MEDS: PLAVIX PO SCH (09:38)
[2018-07-20] MEDS: ASPIRIN PO SCH (09:38)
[2018-07-20] MEDS: LIPITOR PO SCH (09:39)
[2018-07-20] MEDS: PRILOSEC PO SCH (09:39)
[2018-07-20] MEDS: COLACE PO SCH (09:39)
[2018-07-20] MEDS: FOLIC ACID PO SCH (09:39)
[2018-07-20] MEDS: NORCO-7.5 PO PRN (09:52)
[2018-07-20 11:07] VITALS: BP 143/77
[2018-07-20] MEDS: NS 1,000 ML IV SCH (14:10)
--- NOTE | 2018-07-20 15:40 | DISCHARGE SUMMARY ---
ADMISSION DATE: 07/18/2018 DISCHARGE DATE: HISTORY OF PRESENT ILLNESS: He had an episode of chest pain. It was sharp and it was really right over in the right axilla, the right side of his chest. PAST MEDICAL HISTORY: 1. Recurrent cerebrovascular accidents and previous transient ischemic attack. 2. Diabetes mellitus type 2. 3. Hypertension. 4. Sickle cell anemia. 5. Chronic kidney disease. REVIEW OF SYSTEMS: He denied any fever or chills, just some discomfort any he said it was really tender to touch. PHYSICAL EXAMINATION: On exam, I could not appreciate any rash. The area was about 12 cm right along the anterior axilla and the lateral pectoralis. He had no pressure or signs of shortness of breath or diaphoresis. HOSPITAL COURSE: He was admitted with atypical chest pain. His cardiac enzymes were unremarkable. Troponin 0.029 and his electrolytes looked good. His creatinine was 1.4. He improved and felt much better. He had no shortness of breath. Cardiology did evaluate and felt it was atypical. The following morning, on 07/20/2018, he was really requesting to go home. Reported he felt a lot better and so I will get him ready to go home. Continue his home medications. I do not see any evidence of sickle cell chest syndrome or of cardiac ischemia. This appeared to be more musculoskeletal pain, which has resolved. He is on Lipitor 40 mg a day, aspirin 81 mg a day, Coreg 12.5 mg q.12, Plavix 75 mg a day, vitamin B12 1000 mcg daily, Colace 100 mg daily, folic acid 1 mg daily, glimepiride 1 mg b.i.d., Ativan 0.5 mg t.i.d. p.r.n., Cozaar 50 mg a day, multivitamin 1 a day, Prozac 40 mg a day, MiraLAX 17 g daily, senna 8.6 mg p.o. daily, Carafate 1 g q.6 hours p.r.n., temazepam 15 mg p.o. at bedtime. cc: Chava Everett MD
--- NOTE | 2018-07-20 22:56 | HISTORY AND PHYSICAL ---
PRIMARY CARE PROVIDER: Chas Salgado. STUDENT FINANCIAL AID MANAGER: Bay Arango. NEUROLOGIST: Dr. Diaz in [place]. CHIEF COMPLAINT: Dizziness. HISTORY OF PRESENT ILLNESS: This is a 72-year-old male with a history of sickle cell disease, previous strokes and TIAs, hypertension, diabetes mellitus, chronic kidney disease and GERD, who comes in tonight after having an episode at home witnessed by his . He apparently was in the shower, started to get out. He needed to urinate, felt dizzy, urinated on the floor and had to grasp handrail to hold himself up. He felt as if he were having a "sinking spell." He was somewhat confused and broke into a sweat. He has chronic left- sided weakness from previous CVAs. However, it is mild. He denied any associated symptoms such as fever, chills, nausea, vomiting, shortness of breath. He initially denied chest pain. However, he started saying that he was hurting in his right and left sides, but when he pointed he was pointing primarily to the sides of his ribs or his chest. Patient had EKGs completed in the emergency room. One of the EKGs showed very mild T-wave inflection in the lateral leads which could represent ischemia. He will be admitted for further evaluation and treatment. PAST MEDICAL HISTORY: See HPI. PREVIOUS SURGICAL HISTORY: Cholecystectomy, bilateral cataract surgery. SOCIAL HISTORY: Smokes less than a third of a pack of cigarettes a day. No alcohol or illicit drugs. . is present at bedside. He does walk with a cane or walker. FAMILY HISTORY: Positive for hypertension in his mother. Father had heart disease, congestive heart failure and hypertension. ALLERGIES: Ramipril. HOME MEDICATIONS: A list of home medications has not been reconciled. An order was placed for Nursing to reconcile home medications. These will be restarted when appropriate. I do know that the patient takes Plavix and aspirin as well as atorvastatin. REVIEW OF SYSTEMS: Fourteen point review of systems conducted with the patient. Pertinent positives listed above in the HPI. All other systems reviewed and found to be negative. PHYSICAL EXAMINATION: VITAL SIGNS: Temperature 97.8, pulse 68, blood pressure 173/97, oxygen saturation 98% on room air. GENERAL: Very pleasant 72-year-old male lying in the ER stretcher, answers all questions appropriately, is in no acute distress. is present at bedside, very supportive. HEENT: Head is atraumatic, normocephalic. Pupils equal, round, reactive to light. Extraocular eye movement is intact. Sclerae are anicteric. Conjunctiva mildly pale. Oral mucosa is moist. NECK: Supple. No JVD. No thyromegaly. Trachea is midline. No cervical lymphadenopathy. CARDIAC: S1, S2 appreciated. Mildly bradycardic. No murmurs, gallops, rubs. LUNGS: Clear to auscultation bilaterally. No rhonchi, wheezes, rales. Symmetric rise and fall with respirations. ABDOMEN: Soft, nondistended, nontender. Bowel sounds present all 4 quadrants, normoactive. No pulsatile mass. No organomegaly. EXTREMITIES: No clubbing, cyanosis, or edema. Two-plus pedal pulses. MUSCULOSKELETAL: 4/5 upper and lower extremity strength on the left, 5/5 on the right. NEUROLOGICAL: Alert and oriented times 3. Cranial nerves II through XII grossly intact. As noted, left upper and lower extremity are mildly weaker than his right. LABORATORY DATA: WBC 9.36. Hemoglobin 9.5. Hematocrit 27.7. Platelet count 195. Sodium 145. Potassium 4.1. Chloride 107. Carbon dioxide 28. BUN 10. Creatinine 1.7. BUN was 17. Glucose 173. EKG showed a sinus bradycardia with mild ischemic changes to the lateral leads. Chest x-ray showed stable cardiomegaly. ASSESSMENT AND PLAN: 1. Atypical chest pain. As noted above, EKG showed some mild changes in the lateral leads which may represent ischemia. The patient denies overt chest pain but does point to the sides of his chest and states that they have been hurting on and off for the last couple days. We will consult Cardiology. 2. Hypertension. Continue home medications. 3. Sickle cell anemia. This chest pain can possibly be part of sickle cell symptomatology. We will continue to evaluate. 4. Chronic kidney disease. Creatinine has ranged between 1.3 and 1.8. We will continue to monitor. 5. Diabetes mellitus type 2. Fingerstick blood sugar with sliding scale insulin. 6. Gastroesophageal reflux disease. Continue home medications. Further recommendations per patient clinical course. Dictated by TREVOR Green for Brandan Díaz MD cc: RTEVOR Green MD Independent exam and assessment plan was discussed with [employer]ER. Possible stress testing in a.m. since pt has not had any recent study to evaluate for ischemia. EDUARDOD
--- NOTE | 2018-07-21 08:32 | EKG Report ---
Test Performed on : 07/19/2018 01:23:31 AM Test Reason : abnormal ekg Blood Pressure : / mmHG Vent. Rate : 062 BPM Atrial Rate : 062 BPM P-R Int : 146 ms QRS Dur : 094 ms QT Int : 412 ms P-R-T Axes : 027 015 054 degrees QTc Int : 418 ms Sinus rhythm. with premature atrial complexes. Nonspecific ST and T wave abnormality Abnormal ECG When compared with ECG of 19-JUL-2018 00:07, (Unconfirmed) premature atrial complexes. are now present Nonspecific T wave abnormality has replaced inverted T waves in Lateral leads Unconfirmed Result
--- NOTE | 2018-07-21 09:31 | EKG Report ---
Test Performed on : 07/19/2018 00:07:37 AM Test Reason : sweats Blood Pressure : / mmHG Vent. Rate : 055 BPM Atrial Rate : 055 BPM P-R Int : 170 ms QRS Dur : 102 ms QT Int : 454 ms P-R-T Axes : 028 -06 073 degrees QTc Int : 434 ms Sinus bradycardia. T wave abnormality, consider lateral ischemia Abnormal ECG When compared with ECG of 01-JUN-2018 00:01, (Unconfirmed) Vent. rate has decreased BY 32 BPM T wave inversion now evident in Lateral leads Unconfirmed Result
== END 2018-07-20 16:10 | disposition home or self-care (01) | DRG 313 ==
LOC: SUPCPDRO → ED 20:34 → 3N 07-19 05:36 → SUATTDRO 07-19 05:36
PROVIDERS: ATTEND Emergency Medicine
CPT/HCPCS: 71010; 71045; 80048; 80053; 80061; 82550; 82948; 83721; 84443; 84484; 85025; 85045; 93005; 96360; 96361; 96372; 99285; A9270; J1650; J7030; XXXXX